=== PATIENT | female | born 1990 | race African-American/Black ===

== ENCOUNTER 2019-10-09 11:36 | Emergency (ER) | payer OTHER, SELFPAY ==
[2019-10-09 11:52] VITALS: BP 115/62; PULSE 89; RESP 16; TEMP 36.7; O2SAT 99
--- NOTE | 2019-10-09 11:54 | ED.GENADULT ---
HPI - General Adult General Chief complaint: Urogenital-Female Stated complaint: Poss UTI,headeache Time Seen by Provider: 10/09/19 11:56 Source: patient and RN notes reviewed Mode of arrival: ambulatory Limitations: no limitations History of Present Illness HPI narrative: This is a 29 years old female presented office for evaluation of possible UTI. Symptoms began two days ago with urinary urgency and frequency and back pain.Symptoms reminiscent her previous UTI. 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 She is sexually active with one partner. Denies concern for STD. She admits that she does not drink enough water, she drinks mostly soda. Related Data Home Medications Medication Instructions Recorded Confirmed medroxyprogesterone [Depo-Provera] 150 mg IM [id number] 07/15/19 07/15/19 Allergies Allergy/AdvReac Type Severity Reaction Status Date / Time sulfamethoxazole Allergy Unknown Unknown Verified 07/15/19 09:40 Review of Systems Review of Systems: Narrative: CONSTITUTIONAL: Denies fever ENT: Denies rhinorrhea, congestion, sore throat CARDIOVASCULAR: Denies chest pain RESPIRATORY: Denies dyspnea, wheezing, cough GASTROINTESTINAL: Denies abdominal pain, nausea, vomiting, diarrhea. GENITOURINARY: Denies abnormal discharge or lesions SKIN: Denies rash MUSCULOSKELETAL: Reports lower back aches NEUROLOGIC: Denies lightheaded/dizziness PMFSH Past Medical History Medical History (Updated 10/09/19 @ 12:06 by ELIDIA Estrada) Recurrent UTI Social History Social History (Updated 07/15/19 @ 09:49 by ELIDIA Grady) Smoking status: Never smoker Alcohol intake: never Substance use: never Comments At time of signature, I agree with nursing past medical, surgical, social and family history. There is no relevant family history pertinent to the presenting complaint. Exam Narrative: Exam Narrative: GENERAL: This is a well-nourished, well-developed patient, in no apparent distress. CARDIOVASCULAR: Regular rate and rhythm without murmurs, gallops, or rubs. RESPIRATORY: Clear to auscultation. Breath sounds equal bilaterally. No wheezes, rales, or rhonchi. GASTROINTESTINAL: Abdomen soft, non-tender, nondistended. Bowel sounds are active. No hepato-splenomegaly, or palpable masses. No guarding.No CVA tenderness SKIN: warm, intact with no suspicious lesions or rash, good texture and turgor. NEURO: awake, alert, and oriented to person, place and time. There were no obvious focal neurologic abnormalities. Steady gait [place] Coma Scale Eye Opening: Spontaneous 4 [place] Coma Scale Motor: Obeys Commands 6 [place] Coma Scale Verbal: Oriented 5 Course Vital Signs Vital signs: Vital Signs Temperature 98.0 F 10/09/19 11:52 Pulse Rate 89 10/09/19 11:52 Respiratory Rate 16 10/09/19 11:52 Blood Pressure 115/62 10/09/19 11:52 Pulse Oximetry 99 10/09/19 11:52 Temperature 98.0 F 10/09/19 11:52 Pulse Rate 89 10/09/19 11:52 Respiratory Rate 16 10/09/19 11:52 Blood Pressure 115/62 10/09/19 11:52 Pulse Oximetry 99 10/09/19 11:52 Medical Decision Making MDM Narrative Medical decision making narrative: Discharge instructions reviewed with patient, as well as provided in writing per nursing staff. The instructions also include specific and strict return/GO TO THE ER as well as f/u information. All questions have been answered, and the patient deny any further questions with discharge and discharge plan. Differential Diagnosis Differential Diagnosis: Cystitis, Nephrolithiasis, bacterial vaginosis, Nephritis, candidiasis, vaginitis, pyelonephritis Medical Records Medical records reviewed: Yes I reviewed the patient's medical records. Vital Signs Vital Signs: Vital Signs Temperature 98.0 F 10/09/19 11:52 Pulse Rate 89 10/09/19 11:52 Respiratory Rate 16
== END 2019-10-09 12:11 | disposition home or self-care (01) ==
PROVIDERS: Emergency Provider Nurse Practitioner
DX: N39.0 Urinary tract infection, site not specified (principal)
CPT/HCPCS: 81003; 87086; 87088; 99213; G0463

== ENCOUNTER 2019-11-14 09:36 | Emergency (ER) | payer OTHER, SELFPAY ==
[2019-11-14 09:42] VITALS: BP 118/71; PULSE 90; RESP 16; TEMP 36.2; O2SAT 100
--- NOTE | 2019-11-14 10:37 | ED.URI ---
HPI - URI/Sore Throat General Chief Complaint: Upper Respiratory Infection Stated Complaint: Cough, bodyaches Time Seen by Provider: 11/14/19 09:45 Source: patient Mode of arrival: ambulatory Limitations: no limitations History of Present Illness HPI Narrative: Patient presents with chief complaint of body aches, headache, sore throat for 3 days. Patient states she did not receive a flu shot this year. 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 Patient denies fever. Patient denies nausea, vomiting, diarrhea. Patient reports mild cough that is nonproductive. Patient states she has been able to eat and drink appropriately. Patient denies any other symptoms or concerns. Patient states that she is taking TheraFlu for her symptoms. Related Data Home Medications Medication Instructions Recorded Confirmed medroxyprogesterone [Depo-Provera] 150 mg IM [id number] 07/15/19 07/15/19 Allergies Allergy/AdvReac Type Severity Reaction Status Date / Time sulfamethoxazole Allergy Unknown Unknown Verified 11/14/19 09:55 Review of Systems Review of Systems: Narrative: CONSTITUTIONAL: Denies fever, chills, or sweats. EYES: Denies visual changes, redness, or discharge. ENT: Reports congestion, sore throat, denies rhinorrhea or otalgia. CARDIOVASCULAR: Denies chest pain, palpitations, or edema. RESPIRATORY: Reports cough denies dyspnea. GASTROINTESTINAL: Denies abdominal pain, nausea, vomiting, or diarrhea. GENITOURINARY: Denies dysuria or hematuria. SKIN: Denies rash or itching. MUSCULOSKELETAL: Denies back pain, joint pain, or myalgia. NEUROLOGIC: Denies headache, numbness, dizziness, or weakness. PSYCHIATRIC: Denies anxiety or depression. [facility] Past Medical History Medical History (Updated 11/14/19 @ 10:42 by Lizz Sunshine PA-C) Recurrent UTI Social History Social History (Updated 07/15/19 @ 09:49 by ELIDIA Grady) Smoking status: Never smoker Alcohol intake: never Substance use: never Gender identity (if verbalized by the patient): Female Exam Narrative: Exam Narrative: GENERAL: Well-appearing, well-nourished, and in no acute distress. HEAD: Normocephalic, atraumatic. EYES: PERRLA and EOMI. ENT: Nares clear, no rhinorrhea or epistaxis. Mucous membranes moist mildly edematous. Oropharynx with mild tonsillar hypertrophy without exudate or other lesions. Bilateral TMs pearly patel nonbulging NECK: Supple. No adenopathy or masses. CHEST: Clear to auscultation. No respiratory distress. No wheezes rales or rhonchi HEART: Regular rate and rhythm. No murmur heard. Normal peripheral pulses. EXTREMITIES: Normal range of motion. No edema. SKIN: Warm, dry, no rash. NEURO: No focal deficits. Alert and oriented x3. PSYCH: Normal mood and affect. Course Vital Signs Vital signs: Vital Signs Temperature 97.2 F L 11/14/19 09:42 Pulse Rate 90 11/14/19 09:42 Respiratory Rate 16 11/14/19 09:42 Blood Pressure 118/71 11/14/19 09:42 Pulse Oximetry 100 11/14/19 09:42 Temperature 97.2 F L 11/14/19 09:42 Pulse Rate 90 11/14/19 09:42 Respiratory Rate 16 11/14/19 09:42 Blood Pressure 118/71 11/14/19 09:42 Pulse Oximetry 100 11/14/19 09:42 MDM - URI/Sore Throat MDM Narrative Medical decision making narrative: Patient strep and influenza were negative. Patient diagnosed with viral illness. Patient instructed to take [id number] medications such as TheraFlu that she has been taking drink plenty of fluids to stay hydrated and rest. Patient will receive work note for the next few days. Patient instructed to follow-up with her primary care provider if symptoms persist. Patient directed to return to emergency department if she has any worsening or emergent symptoms. Patient verbalized understanding, plan patient denies any other needs or concerns at this time. Differential Diagnosis Differential
[2019-11-14 11:06] VITALS: BP 122/80; PULSE 80; RESP 20; TEMP 37.2; O2SAT 99
[2019-11-14 11:08] VITALS: BP 122/80; PULSE 80; RESP 20; TEMP 37.2; O2SAT 99
== END 2019-11-14 11:10 | disposition home or self-care (01) ==
PROVIDERS: Emergency Provider Emergency Medicine
DX: B34.9 Viral infection, unspecified (principal); Z87.440 Personal history of urinary (tract) infections
CPT/HCPCS: 87081; 87804; 87880; 99283

== ENCOUNTER 2019-11-25 09:42 | Emergency (ER) | payer OTHER, SELFPAY ==
[2019-11-25 09:52] VITALS: BP 109/54; PULSE 79; RESP 16; TEMP 37.1; O2SAT 99
--- NOTE | 2019-11-25 10:45 | ED.GENADULT ---
HPI - General Adult General Chief complaint: Nausea/Vomiting/Diarrhea Stated complaint: vomiting/diarrhea/abd pain History of Present Illness HPI narrative: Patient is a 29-year-old -[place] female who presents to the urgent care via POV for evaluation of vomiting that began this morning. Additionally, she reports one episode of vomiting undigested food. She also reports moderate nausea. She believes her symptoms are caused by bad food . She states she believes the lettuce and tomato she ate last night was spoiled . Denies taking OTC meds for symptoms. Symptoms worsen while sitting up and improved with sleeping. Denies recent travel. Pertinent negatives: fever, chills, sweats, change in appetite, poor p.o. intake, recent weight loss, abdominal pain, abdominal cramping, extremity paresthesias, urinary sxs, back/flank pain, belching, bloating, heartburn, hematemesis, bloody stools, rectal bleeding, mental confusion, dry mouth, skin color changes, shortness of breath, chest pain, and heart palpitations/murmurs. She is requesting documentation for work absence. Related Data Home Medications Medication Instructions Recorded Confirmed medroxyprogesterone [Depo-Provera] 150 mg IM [id number] 07/15/19 11/25/19 Allergies Allergy/AdvReac Type Severity Reaction Status Date / Time sulfamethoxazole Allergy Unknown Swelling Verified 11/25/19 10:17 Review of Systems Review of Systems: Narrative: All other systems reviewed and are negative PMFSH Past Medical History Medical History Recurrent UTI Social History Social History Smoking status: Never smoker Alcohol intake: never Substance use: never Gender identity (if verbalized by the patient): Female Comments I have reviewed and agree with the patient's past medical, surgical, social, and family hx as documented by the RN. There is no relevant family history pertinent to the presenting complaint. Exam Narrative: Exam Narrative: GENERAL: Well-appearing, well-nourished, and in no acute distress. HEAD: Normocephalic, atraumatic. NECK: Supple. No lymphadenopathy or nuchal rigidity. CHEST: Lung sounds are clear to auscultation in bilateral lung harmon. No respiratory distress. HEART: Regular rate and rhythm. No murmur, gallop, or rub heard. ABDOMEN: Soft, non-tender, non-distended, normal active bowel sounds in all quadrants. No guarding. No rebound tenderness. No pulsatile or palpable abdominal mass(es). No CVATGU: Bladder non-distended, non-tender EXTREMITIES: Normal range of motion. No edema. SKIN: Warm, dry, no rash. No skin color changes. Excellent turgor. NEURO: No focal deficits. Alert and oriented x3. Special observations: Patient smiling and laughing. Course Vital Signs Vital signs: Vital Signs Temperature 98.8 F 11/25/19 09:52 Pulse Rate 79 11/25/19 09:52 Respiratory Rate 16 11/25/19 09:52 Blood Pressure 109/54 L 11/25/19 09:52 Pulse Oximetry 99 11/25/19 09:52 Temperature 98.8 F 11/25/19 09:52 Pulse Rate 79 11/25/19 09:52 Respiratory Rate 16 11/25/19 09:52 Blood Pressure 109/54 L 11/25/19 09:52 Pulse Oximetry 99 11/25/19 09:52 Medical Decision Making MDM Narrative Medical decision making narrative: Bowel obstruction, perforation of GI tract, Acute mesenteric ischemia, chronic mesenteric ischemia, IBD, viral gastroenteritis, spontaneous bacterial peritonitis, food borne illness, Ketoacidosis, malignancy, IBS, constipation, diverticulosis, lactose intolerance Medical Records Medical records reviewed: Yes I reviewed the patient's medical records. Vital Signs Vital Signs: Vital Signs Temperature 98.8 F 11/25/19 09:52 Pulse Rate 79 11/25/19 09:52 Respiratory Rate 16 11/25/19 09:52 Blood Pressure 109/54 L 11/25/19 09:52 Pulse Oximetry 99 11/25/19 09:52 Temperature 98.8 F 11/25/19
== END 2019-11-25 10:55 | disposition home or self-care (01) ==
PROVIDERS: Emergency Provider Nurse Practitioner Family
DX: R11.2 Nausea with vomiting, unspecified (principal); D57.3 Sickle-cell trait; Z87.440 Personal history of urinary (tract) infections
CPT/HCPCS: 99213; G0463

== ENCOUNTER 2019-12-18 05:53 | Emergency (ER) | payer OTHER, SELFPAY ==
[2019-12-18 06:02] VITALS: BP 123/71; PULSE 93; RESP 16; TEMP 37.1; O2SAT 100
--- NOTE | 2019-12-18 06:07 | ED.ABDPAIN ---
HPI - Abdominal Pain General Chief Complaint: Abdominal Pain Stated Complaint: abd and low back pain Time Seen by Provider: 12/18/19 06:04 History of Present Illness HPI narrative: Lower abdominal Pain for the past three days. Constant. No exacerbating or alleviating factors. Associated with urinary frequency, dysuria, and vaginal dyscharge. Additionally she c/o some bilateral low back pain. She was started on flagyl by her PCP for suspected BV. No exam or testing done. She vomited 2 weeks ago. She has been seen for this or similar symptoms in the past and treated for a UTI. Most recently last month. Urinae culture came back negative. Related Data Home Medications Medication Instructions Recorded Confirmed medroxyprogesterone [Depo-Provera] 150 mg IM [id number] 07/15/19 11/25/19 Allergies Allergy/AdvReac Type Severity Reaction Status Date / Time sulfamethoxazole Allergy Unknown Swelling Verified 12/18/19 06:08 Review of Systems Review of Systems: All systems reviewed & are unremarkable except as noted in HPI and below Constitutional: Constitutional: Denies fever(s) ENT: Denies sore throat Cardiovascular: Cardiovascular: Denies chest pain Respiratory: Respiratory: Denies cough and Denies dyspnea Gastrointestinal: Gastrointestinal: Reports abdominal pain, Denies constipation, Denies diarrhea and Reports nausea Genitourinary: Genitourinary: Denies hematuria, Reports nocturia and Reports dysuria Musculoskeletal: Musculoskeletal: Reports back pain Neurologic: Denies dizziness and Denies weakness [facility] Past Medical History Medical History Recurrent UTI Social History Social History (Updated 12/18/19 @ 07:02 by Pavel Soriano MD) Social History: Sexually active in monogamous relationship. Smoking status: Never smoker Alcohol intake: never Substance use: never Gender identity (if verbalized by the patient): Female Exam Const: General: healthy appearing, no acute distress and alert Orientation/consciousness: patient oriented x3 HENMT: Head: normal to inspection Neck: Neck: normal visual inspection and no lymphadenopathy Chest: Chest palpation & inspection: no tenderness Resp: Effort & Inspection: normal respiratory effort Auscultation: clear to auscultation bilaterally, no rales, no rhonchi and no wheezes Cardio: Jugular venous distension: no JVD Rate: regular rate Rhythm: regular rhythm Heart sounds: no murmurs GI: Inspection: non-distended GI Palp: Yes Soft to palpation and Yes Tenderness to palpation present (GI) (suprapubic) : External Female Exam: normal external appearance Speculum Exam - Vagina: abnormal vaginal discharge white and frothy and No vaginal bleeding Bimanual exam- vagina & uterus: no cervical motion tenderness Other: erythema of vaginal and cervix Skin: General skin exam: normal color Neuro: General: patient oriented x3 and moves all extremities Speech: normal speech Extrem: General: no edema Psych: Appearance: well kempt Affect: normal affect Course Course Emergency Course: Placed on telemetry to monitor for QT prolongation prior to giving medications. Vital Signs Vital signs: Vital Signs Temperature 37.1 C 12/18/19 06:02 Pulse Rate 93 12/18/19 06:02 Respiratory Rate 16 12/18/19 06:02 Blood Pressure 123/71 12/18/19 06:02 Pulse Oximetry 100 12/18/19 06:02 Temperature 37.1 C 12/18/19 06:02 Pulse Rate 89 12/18/19 08:56 Respiratory Rate 18 12/18/19 08:56 Blood Pressure 112/61 12/18/19 08:56 Pulse Oximetry 100 12/18/19 08:56 MDM - Abdominal Pain MDM Narrative Medical decision making narrative: Pelvic exam is definitely concerning for cervicitis. No CMT, so PID is unlikely. Discharged is thick and white as may be seen with a yeast infection. This is made more likely by the multiple recent courses of antibiotics. I will treat empirically for cervicitis
[2019-12-18 06:34] LABS: Basophils Percent Auto 0.3 % (0.2-1.2); Eosinophils Absolute Auto 0.1 K/mm3 (0-0.3); Eosinophils Percent Auto 1.3 % (0-4.4); Hematocrit 38.8 % (37.0-47.0); Hemoglobin 12.4 g/dL (12.0-15.0); Immature Granulocyte Absolute 0.03 K/mm3 (0.00-0.031); Immature Granulocyte Percent A 0.3 % (0-0.5); Lymphocytes Absolute Auto 2.67 K/mm3 (0.9-3.2); Lymphocytes Percent Auto 29.5 % (18.3-44.2); Mean Corpuscular Hemoglobin 22.1 pg (26-34); Monocytes Absolute Auto 0.8 K/mm3 (0.1-0.6); Monocytes Percent Auto 8.8 % (2.6-8.5); Neutrophils Absolute Auto 5.4 K/mm3 (1.3-6.7); Neutrophils Percent Auto 59.8 % (45.5-73.1); Platelet Count Result 284 k/mm3 (150-375); Red Blood Count 5.62 M/mm3 (4.2-5.4); Red Cell Distribution Width 14.2 % (11.5-14.5); White Blood Count 9.1 K/mm3 (4.5-10.0)
[2019-12-18 06:39] LABS: Alanine Aminotransferase 13 U/L (4-35); Albumin Level 4.3 g/dL (3.5-5.1); Alkaline Phosphatase 76 U/L (38-126); Aspartate Amino Transferase 20 U/L (14-36); Bilirubin,Total 0.8 mg/dL (0.2-1.3); Blood Urea Nitrogen 10 mg/dL (7-17); Carbon Dioxide 24 mmol/L (22-30); Chloride 108 mmol/L (98-107); Estimated Glomerular Filt Rate > 60; Glucose 112 mg/dL (65-105); Lipase 70 U/L (23-300); Potassium 3.5 mmol/L (3.4-5.0); Sodium 139 mmol/L (137-145)
[2019-12-18 06:58] LABS: Add Urine Microscopic? YES; Appearance Urine Cloudy (Clear); Bacteria Urine 2+ /hpf; Bilirubin Urine Negative (Negative); Blood Urine 2+ (Negative); Color Urine Yellow (Yellow); Glucose Urine UA Negative (Negative); Ketones Urine Negative (Negative); Leukocyte Esterase Ur 1+ LEU/UL (Negative); Mucus Urine Rare /lpf; Nitrate Urine Negative (Negative); Protein Urine 1+ mg/dL (Negative); Specific Grav Ur 1.029 (1.001-1.035); Squamous Epithelial Cell Urine Many /hpf (Few)
--- NOTE | 2019-12-18 07:24 | PC.NURSE ---
At bedside while EDP did pelvic exam. Pt tolerated well.
[2019-12-18] MEDS: AZITHROMYCIN 250 MG TABLET 1000 MG PO (07:33)
[2019-12-18] MEDS: cefTRIAXone 250 MG VIAL IM (07:33)
[2019-12-18] MEDS: FLUCONAZOLE 150 MG TABLET PO (07:46)
[2019-12-18 07:50] VITALS: BP 112/76; PULSE 82; RESP 22; O2SAT 100
[2019-12-18 08:56] VITALS: BP 112/61; PULSE 89; RESP 18; O2SAT 100
== END 2019-12-18 08:57 | disposition home or self-care (01) ==
PROVIDERS: Emergency Provider Emergency Medicine
DX: N72 Inflammatory disease of cervix uteri (principal); Z87.440 Personal history of urinary (tract) infections
CPT/HCPCS: 36415; 80053; 81001; 81025; 83690; 85025; 87070; 87086; 87088; 87491; 87591; 87808; 96372; 99284; A9270; J0696

== ENCOUNTER 2020-05-25 10:58 | Emergency (ER) | payer BC, OTHER, SELFPAY ==
[2020-05-25 11:18] VITALS: BP 105/63; PULSE 78; RESP 16; TEMP 36.7; O2SAT 99
[2020-05-25] MEDS: AZITHROMYCIN 250 MG TABLET 1000 MG PO (11:55)
[2020-05-25] MEDS: cefTRIAXone 250 MG VIAL IM (11:56)
[2020-05-25] MEDS: LIDOCAINE HCL 1% LOCAL INJ 20 ML VIAL IM (11:56)
--- NOTE | 2020-05-25 12:00 | ED.FEMALEGU ---
HPI - Female Genitourinary General Chief complaint: Urogenital-Female Stated complaint: Not feeling Well Time Seen by Provider: 05/25/20 11:30 Source: patient and RN notes reviewed Mode of arrival: ambulatory Limitations: no limitations History of Present Illness HPI Narrative: Patient presents today with a 2-week history of urinary frequency and itching, vaginal discharge, nausea, pelvic pain. Symptoms have been worse for the last 5 days. Patient has 1 partner that is new over the past 4 to 5 months. She does have unprotected intercourse. She has been experiencing dyspareunia, but denies blood with intercourse. Denies hematuria. Uses Depo-Provera. Has not had a menstrual cycle in 4 to 5 years due to Depo-Provera use. MD elicited complaint: dysuria, vaginal discharge and pelvic pain Related Data Home Medications Medication Instructions Recorded Confirmed medroxyprogesterone [Depo-Provera] 1 mg IM [id number] 05/25/20 05/25/20 Allergies Allergy/AdvReac Type Severity Reaction Status Date / Time sulfamethoxazole Allergy Swelling Verified 05/25/20 11:23 [From ] trimethoprim [From ] Allergy Swelling Verified 05/25/20 11:23 Review of Systems Review of Systems: Narrative: CONSTITUTIONAL: Denies body aches, fever, chills, or sweats. EYES: Denies visual changes, redness, or discharge. ENT: Denies rhinorrhea, congestion, sore throat, or otalgia. CARDIOVASCULAR: Denies chest pain, palpitations, or edema. RESPIRATORY: Denies cough or dyspnea. GASTROINTESTINAL: Denies abdominal pain, nausea, vomiting, or diarrhea. GENITOURINARY: + Dysuria, frequency, vaginal itching and discharge, dyspareunia SKIN: Denies rash, itching, or wounds. MUSCULOSKELETAL: Denies back pain, joint pain, or myalgia. NEUROLOGIC: Denies headache, numbness, tingling, or weakness. PSYCH: Denies depression or anxiety. PMFSH Social History Social History Gender identity (if verbalized by the patient): Female Comments At time of signature, I have reviewed and agree with nursing past medical, surgical, social and family history unless otherwise noted. Please see nursing chart for further information. There is no relevant family history pertinent to the presenting complaint Exam Narrative: Exam Narrative: GENERAL: Well-appearing, well-nourished, and in no acute distress. HEAD: Normocephalic, atraumatic. EYES: EOMI. No redness or drainage. Conjunctivae normal. ENT: Mucous membranes pink and moist. NECK: Normal AROM. CHEST: No respiratory distress. Clear to auscultation. HEART: Regular rate and rhythm. No murmur appreciated. Normal peripheral pulses. ABDOMEN: Soft, nondistended, normal active bowel sounds. :Copious green/yellow purulent vaginal discharge with pooling. Cervix appears normal. No CMT. +Pelvic tenderness. MUSCULOSKELETAL: No bony tenderness. EXTREMITIES: Normal range of motion. No edema. SKIN: Warm, dry, no rash. Capillary refill normal. Normal skin turgor. NEURO: No focal deficits. Alert and oriented x3. Gait steady. PSYCH: Normal affect. No signs of depression or anxiety. Course Vital Signs Vital signs: Vital Signs Temperature 98.0 F 05/25/20 11:18 Pulse Rate 78 05/25/20 11:18 Respiratory Rate 16 05/25/20 11:18 Blood Pressure 105/63 05/25/20 11:18 Pulse Oximetry 99 05/25/20 11:18 Temperature 98.0 F 05/25/20 11:18 Pulse Rate 78 05/25/20 11:18 Respiratory Rate 16 05/25/20 11:18 Blood Pressure 105/63 05/25/20 11:18 Pulse Oximetry 99 05/25/20 11:18 Reviewed MDM - Female Genitourinary Differential Diagnosis Differential diagnosis: Likely urinary tract infection, bacterial vaginosis, trichomoniasis, cervicitis, vaginitis and cystitis Lab Data Attestation: I reviewed the patient's lab results. Labs: Urine Glucose Negative Reference Range: Negative Urine Bilirubin Negative Reference Range: Negative Urine Ketone
--- NOTE | 2020-05-25 12:12 | PC.NURSE ---
Provider did not want urine culture
== END 2020-05-25 12:19 | disposition home or self-care (01) ==
PROVIDERS: Emergency Provider Nurse Practitioner
DX: R35.0 Frequency of micturition (principal)
CPT/HCPCS: 81003; 87491; 87591; 87661; 96372; 99204; A9270; G0463; J0696

== ENCOUNTER 2020-06-21 12:19 | Emergency (ER) | payer BC, OTHER, SELFPAY ==
[2020-06-21 12:38] VITALS: BP 111/54; PULSE 80; RESP 16; TEMP 36.8; O2SAT 100
--- NOTE | 2020-06-21 13:07 | ED.GENADULT ---
HPI - General Adult General Chief complaint: Ear Stated complaint: Ear Pain,Back Pain Time Seen by Provider: 06/21/20 12:37 Source: patient and RN notes reviewed Mode of arrival: ambulatory Limitations: no limitations History of Present Illness HPI narrative: Patient presents today with a 4-day history of left ear pain as well as bilateral low back pain and urinary frequency. Denies any other upper respiratory symptoms to include cough, congestion, sore throat, runny nose, fever. She denies any additional urinary symptoms to include dysuria, hematuria, urgency. Denies nausea, vomiting, diarrhea. She has tried no [id number] interventions prior to arrival. Patient was seen here last month for vaginal discharge and urinary symptoms, tested for gonorrhea, chlamydia, and trichomonas as well as treated for all of these. All of these test came back negative. She did not follow-up with an [employer] for any further evaluation of the symptoms. MD complaint: Ear pain, back pain Related Data Home Medications Medication Instructions Recorded Confirmed medroxyprogesterone [Depo-Provera 150 mg IM [id number] 06/21/20 06/21/20 Contraceptive] Allergies Allergy/AdvReac Type Severity Reaction Status Date / Time sulfamethoxazole Allergy Swelling Verified 06/21/20 12:43 [From Bactrim] of Lip/Tongue/Throat trimethoprim [From Bactrim] Allergy Swelling Verified 06/21/20 12:43 of Lip/Tongue/Throat Review of Systems Review of Systems: Narrative: CONSTITUTIONAL: Denies body aches, fever, chills, or sweats. EYES: Denies visual changes, redness, or discharge. ENT: Denies rhinorrhea, congestion, sore throat. + Ear pain CARDIOVASCULAR: Denies chest pain, palpitations, or edema. RESPIRATORY: Denies cough or dyspnea. GASTROINTESTINAL: Denies abdominal pain, nausea, vomiting, or diarrhea. GENITOURINARY: Denies dysuria or hematuria.+ Urinary frequency SKIN: Denies rash, itching, or wounds. MUSCULOSKELETAL: Denies joint pain, or myalgia. + Low back pain NEUROLOGIC: Denies headache, numbness, tingling, or weakness. PSYCH: Denies depression or anxiety. PMFSH Comments At time of signature, I have reviewed and agree with nursing past medical, surgical, social and family history unless otherwise noted. Please see nursing chart for further information. There is no relevant family history pertinent to the presenting complaint Exam Narrative: Exam Narrative: GENERAL: Well-appearing, well-nourished, and in no acute distress. HEAD: Normocephalic, atraumatic. EYES: EOMI. No redness or drainage. Conjunctivae normal. ENT: Mucous membranes pink and moist. Nares clear. No rhinorrhea. TMs normal bilaterally. Left external ear with tragal tenderness. No movement tenderness bilaterally. Left ear canal is mildly erythematous and tender with placement of the ear speculum. No edema of the canal noted. Throat normal. Uvula midline. NECK: Normal AROM. Supple. No lymphadenopathy. CHEST: No respiratory distress. Clear to auscultation. HEART: Regular rate and rhythm. No murmur appreciated. Normal peripheral pulses. ABDOMEN: Soft, nontender, nondistended, normal active bowel sounds. MUSCULOSKELETAL: No bony tenderness of the spine. Bilateral lower lumbar paraspinal muscle tenderness. No SI joint tenderness. No thoracic spinal tenderness or paraspinal muscle tenderness. EXTREMITIES: Normal range of motion. No edema. Large, sharp acrylic fingernails. SKIN: Warm, dry, no rash. Capillary refill normal. Normal skin turgor. NEURO: No focal deficits. Alert and oriented x3. Gait steady. PSYCH: Normal affect. No signs of depression or anxiety. Course Vital Signs Vital signs: Vital Signs Temperature 98.2 F 06/21/20 12:38 Pulse Rate 80 06/21/20 12:38 Respiratory Rate 16 06/21/20 12:38 Blood Pressure 111/54 L 06/21/20 12:38 Pulse Oximetry 100 06/21/20 12:38 Temperature 98.2 F 06/21/20 12:38 Pulse Rate 80 06/21/20 12
== END 2020-06-21 13:27 | disposition home or self-care (01) ==
PROVIDERS: Emergency Provider Nurse Practitioner
DX: H60.502 Unspecified acute noninfective otitis externa, left ear (principal); S39.012A Strain of muscle, fascia and tendon of lower back, initial encounter; X58.XXXA Exposure to other specified factors, initial encounter; D57.3 Sickle-cell trait
CPT/HCPCS: 81003; 87086; 99203; G0463

== ENCOUNTER 2020-11-05 20:09 | Emergency (ER) | payer BC, MEDICAID, SELFPAY ==
[2020-11-05 20:11] VITALS: BP 118/62; PULSE 99; RESP 20; TEMP 36.1; O2SAT 99
--- NOTE | 2020-11-05 20:28 | ED.GENADULT ---
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 Stated complaint: vaginal blisters Time Seen by Provider: 11/05/20 20:17 Source: patient Mode of arrival: ambulatory Limitations: no limitations History of Present Illness HPI narrative: Patient is a 30-year-old female who presents to emergency department for evaluation of what she feels were sores around the introitus patient was with 1 partner notes that she has been having irritation of the vagina for the last 2 weeks patient has not seen her steward/stewardess smoke room for this denies similar occurrence patient otherwise presents in no distress and denies other illness or complaints Related Data Home Medications Medication Instructions Recorded Confirmed medroxyprogesterone [Depo-Provera] 1 mg IM [id number] 05/25/20 05/25/20 Allergies Allergy/AdvReac Type Severity Reaction Status Date / Time sulfamethoxazole Allergy Swelling Verified 11/05/20 20:17 [From ] trimethoprim [From ] Allergy Swelling Verified 11/05/20 20:17 Review of Systems Review of Systems: All systems reviewed & are unremarkable except as noted in HPI and below PMFSH Social History Social History Gender identity (if verbalized by the patient): Female Exam Narrative: Exam Narrative: GENERAL: Well-appearing, well-nourished, and in no acute distress. HEAD: Normocephalic, atraumatic. EYES: PERRLA and EOMI. ENT: Nares clear, no rhinorrhea or epistaxis. Mucous membranes moist. ABDOMEN: Soft, nontender, nondistended FEMALE GENITOURINARY: Normal exam no discharge no lesions EXTREMITIES: Normal range of motion. No edema. SKIN: Warm, dry, no rash. NEURO: No focal deficits. Alert and oriented x3. PSYCH: Normal mood and affect. Course Course Emergency Course: Patient evaluated the emergency department had pelvic cultures obtained will follow with gynecology no high risk changes no lesions sores noted on exam Vital Signs Vital signs: Vital Signs Temperature 97.0 F L 11/05/20 20:11 Pulse Rate 99 11/05/20 20:11 Respiratory Rate 20 11/05/20 20:11 Blood Pressure 118/62 11/05/20 20:11 Pulse Oximetry 99 11/05/20 20:11 Temperature 97.0 F L 11/05/20 20:11 Pulse Rate 99 11/05/20 20:11 Respiratory Rate 20 11/05/20 20:11 Blood Pressure 118/62 11/05/20 20:11 Pulse Oximetry 99 11/05/20 20:11 Medical Decision Making MDM Narrative Medical decision making narrative: Patient presented for vaginal lesions that are none seen on exam swabs were obtained for gonorrhea chlamydia trichomoniasis patient will follow with gynecology for further evaluate Vital Signs Vital Signs: Vital Signs Temperature 97.0 F L 11/05/20 20:11 Pulse Rate 99 11/05/20 20:11 Respiratory Rate 20 11/05/20 20:11 Blood Pressure 118/62 11/05/20 20:11 Pulse Oximetry 99 11/05/20 20:11 Temperature 97.0 F L 11/05/20 20:11 Pulse Rate 99 11/05/20 20:11 Respiratory Rate 20 11/05/20 20:11 Blood Pressure 118/62 11/05/20 20:11 Pulse Oximetry 99 11/05/20 20:11 Lab Data Labs: Lab Results 11/05/20 11/05/20 Range/Units 20:43 20:43 C.trachomatis RNA (TMA) Pending N.gonorrhoeae RNA (TMA) Pending Trichomonas Direct ID Negative (Negative) UCG Bedside Result Negative Reference Range: Negative Discharge Plan Discharge Clinical Impression: Vaginal pain Patient Disposition: Home, Self-Care Condition: Stable Instructions: Antibiotic Form, Pelvic Pain in Women (ED) Additional Instructions: Follow-up with your steward/stewardess smoke room for culture results in the next 3 days no sex until you have been seen by gynecology and cleared Follow up with your primary care doctor tommorrow. Go to ER for worsening pain, nausea/vomitting, fever/chills, vaginal discharge/bleeding, chest pain, shortness of breath, blood in stools or urine, etc. or any other con
== END 2020-11-05 21:10 | disposition home or self-care (01) ==
PROVIDERS: Emergency Medicine Emergency Medical Services; Emergency Provider Emergency Medicine
DX: N89.8 Other specified noninflammatory disorders of vagina (principal)
CPT/HCPCS: 81025; 87070; 87491; 87591; 87808; 99284

== ENCOUNTER 2020-12-05 12:42 | Emergency (ER) | payer MEDICAID, SELFPAY ==
--- NOTE | 2020-12-05 12:45 | ED.FEMALEGU ---
HPI - Female Genitourinary General Chief complaint: Urogenital-Female Stated complaint: STD Test Time Seen by Provider: 12/05/20 12:45 Source: patient and RN notes reviewed History of Present Illness HPI Narrative: Patient is a 30-year-old female who presents the urgent care with request for STD check. Patient states that she had oral and vaginal sexual intercourse 5 days ago and then started having symptoms of yellow odorous vaginal discharge, burning with urination, intermittent low back pain, and intermittent abdominal cramping. Patient states that she does have a lot of urinary frequency. Denies of any blood in the urine. Denies of any fever, chills, nausea, vomiting. Patient states she is also had some throat irritation . Patient denies of any fever, chills, nausea, vomiting. No other acute complaints. No acute distress noted. Patient aware of the plan of care. Patient Related Data Home Medications Medication Instructions Recorded Confirmed medroxyprogesterone [Depo-Provera] 150 mg IM [id number] 07/15/19 11/25/19 Allergies Allergy/AdvReac Type Severity Reaction Status Date / Time sulfamethoxazole Allergy Unknown Swelling Verified 12/18/19 06:08 Review of Systems Review of Systems: Narrative: CONSTITUTIONAL: Denies fever, chills, or sweats. EYES: Denies visual changes, redness, or discharge. ENT: Denies rhinorrhea, congestion, sore throat, or otalgia. CARDIOVASCULAR: Denies chest pain, palpitations, or edema. RESPIRATORY: Denies cough or dyspnea. GASTROINTESTINAL: Reports of mild lower abdominal cramping without nausea or vomiting GENITOURINARY: Reports of dysuria, frequency, yellow vaginal discharge and odor SKIN: Denies rash or itching. MUSCULOSKELETAL: Reports of mild low back pain NEUROLOGIC: Denies headache, numbness, or weakness. All other systems reviewed are negative, except as documented in HPI. [facility] Past Medical History Medical History (Updated 12/05/20 @ 13:19 by ELIDIA Mix) Recurrent UTI Social History Social History (Updated 12/18/19 @ 07:02 by Pavel Soriano MD) Social History: Sexually active in monogamous relationship. Smoking status: Never smoker Alcohol intake: never Substance use: never Gender identity (if verbalized by the patient): Female Comments At the time of my signature, I reviewed and agree with the nursing past medical, surgical, social, and family history. There is no relevant family history pertinent to the patient complaint. Exam Narrative: Exam Narrative: GENERAL: This is a well-nourished, well-developed patient, in no apparent distress. HEAD: normocephalic, atraumatic. EYES: PERRL. Sclera clear/white. Vision is grossly intact. EARS: External ears normal NOSE: External nose normal with no obvious nasal discharge, nares without redness, no rhinorrhea. THROAT: Mucous membranes moist, posterior pharynx clear. NECK: Neck supple, non-tender without lymphadenopathy GASTROINTESTINAL: Abdomen soft, mild suprapubic tenderness, nondistended. Bowel sounds are active. : Deferred vaginal exam SKIN: warm, intact with no suspicious lesions or rash, good texture and turgor. NEURO: awake, alert, and oriented to person, place and time. There were no obvious focal neurologic abnormalities. EXTREMITIES: No clubbing, cyanosis, or edema. BACK: Mild right CVA tenderness Course Vital Signs Vital signs: Vital Signs Temperature 98.1 F 12/05/20 13:00 Pulse Rate 97 12/05/20 13:00 Respiratory Rate 18 12/05/20 13:00 Blood Pressure 124/60 12/05/20 13:00 Pulse Oximetry 100 12/05/20 13:00 Temperature 98.1 F 12/05/20 13:00 Pulse Rate 97 12/05/20 13:00 Respiratory Rate 18 12/05/20 13:00 Blood Pressure 124/60 12/05/20 13:00 Pulse Oximetry 100 12/05/20 13:00 Reviewed MDM - Female Genitourinary MDM Narrative Medical decision making narrative: Reviewed lab results with the patient. She is aware that urine analysis was not
[2020-12-05 13:00] VITALS: BP 124/60; PULSE 97; RESP 18; TEMP 36.7; O2SAT 100
[2020-12-05] MEDS: cefTRIAXone 250 MG VIAL 500 MG IM (13:21)
== END 2020-12-05 13:42 | disposition home or self-care (01) ==
PROVIDERS: Emergency Provider Nurse Practitioner Family
DX: Z20.2 Contact with and (suspected) exposure to infections with a predominantly sexual mode of transmission (principal)
CPT/HCPCS: 81003; 87070; 87491; 87591; 87661; 96372; 99214; G0463; J0696

== ENCOUNTER 2021-01-08 15:34 | Emergency (ER) | payer OTHER, SELFPAY ==
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
[2021-01-08 15:51] VITALS: BP 106/69; PULSE 80; RESP 16; TEMP 36.4; O2SAT 100
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
== END 2021-01-08 17:08 | disposition home or self-care (01) ==
PROVIDERS: Emergency Provider Nurse Practitioner
DX: S39.012A Strain of muscle, fascia and tendon of lower back, initial encounter (principal); V87.7XXA Person injured in collision between other specified motor vehicles (traffic), initial encounter; R07.89 Other chest pain
CPT/HCPCS: 71101; 72100; 81003; 87086; 87088; 99213; G0463

== ENCOUNTER 2021-01-19 16:12 | Emergency (ER) | payer OTHER, SELFPAY ==
[2021-01-19 16:27] VITALS: BP 113/67; PULSE 82; RESP 18; TEMP 36.4; O2SAT 100
--- NOTE | 2021-01-19 16:31 | ED.FEMALEGU ---
HPI - Female Genitourinary General Chief complaint: Urogenital-Female Stated complaint: vaginal itching Time Seen by Provider: 01/19/21 16:31 Source: patient Mode of arrival: ambulatory Limitations: no limitations History of Present Illness HPI Narrative: Lurdes Colunga is a 30 yo female with no PMH here with complaints of vaginal itching after using a new body wash. Has had issues with vaginal itching for the past 2 days; no discharge Related Data Home Medications Medication Instructions Recorded Confirmed medroxyprogesterone [Depo-Provera] 1 mg IM [id number] 05/25/20 05/25/20 Allergies Allergy/AdvReac Type Severity Reaction Status Date / Time sulfamethoxazole Allergy Swelling Verified 11/05/20 20:17 [From ] trimethoprim [From ] Allergy Swelling Verified 11/05/20 20:17 Review of Systems Review of Systems: Narrative: CONSTITUTIONAL: Denies fever, chills, sweats. EYES: Denies visual changes, redness, discharge. ENT: Denies rhinorrhea, congestion, sore throat, otalgia. CARDIOVASCULAR: Denies chest pain, palpitations, edema. RESPIRATORY: Denies dyspnea, wheezing, cough GASTROINTESTINAL: Denies abdominal pain, nausea, vomiting, diarrhea. GENITOURINARY: Denies dysuria, hematuria, abnormal discharge SKIN: Denies rash or itching. NEUROLOGIC: Denies numbness, or focal weakness. PSYCHIATRIC: Denies anxiety or depression. Vaginal itching for 2 days after change in body wash PMFSH Past Medical History Medical History No acute medical problems Family History Family History (Updated 01/19/21 @ 16:37 by Azeb Lam CNP) Father Diabetes mellitus Social History Social History (Updated 01/19/21 @ 16:37 by Azeb Lam CNP) Smoking status: Never smoker Alcohol intake: current Gender identity (if verbalized by the patient): Female Comments At time of signature, I agree with nursing past medical, surgical, social and family history. There is no relevant family history pertinent to the presenting complaint. Exam Narrative: Exam Narrative: GENERAL: This is a well-nourished, well-developed patient, in mild distress. HEAD: normocephalic, atraumatic. EYES: Sclera clear/white. Vision is grossly intact. EARS: External ears normal,. Hearing grossly intact. NOSE: External nose normal no rhinorrhea. THROAT: Mucous membranes moist, NECK: Neck supple, CARDIOVASCULAR: Regular rate and rhythm without murmurs, gallops, or rubs. RESPIRATORY: Clear to auscultation. Breath sounds equal bilaterally. No wheezes, rales, or rhonchi. GASTROINTESTINAL: Abdomen soft, non-tender, SKIN: warm, intact with no suspicious lesions or rash, good texture and turgor. NEURO: awake, alert, and oriented to person, place and time. There were no obvious focal neurologic abnormalities. Steady gait EXTREMITIES: Normal range of motion. BACK: Nontender without deformity Course Course Emergency Course: [facility] with complaints of vaginal itching x2 days; also has a history of UTI UA done-+1 leukocytes with 1+1 blood She started on 5 days Keflex, Diflucan 1 pill today with another to follow-up in 3 days Vital Signs Vital signs: Vital Signs Temperature 97.6 F 01/19/21 16:27 Pulse Rate 82 01/19/21 16:27 Respiratory Rate 18 01/19/21 16:27 Blood Pressure 113/67 01/19/21 16:27 Pulse Oximetry 100 01/19/21 16:27 Temperature 97.6 F 01/19/21 16:27 Pulse Rate 82 01/19/21 16:27 Respiratory Rate 18 01/19/21 16:27 Blood Pressure 113/67 01/19/21 16:27 Pulse Oximetry 100 01/19/21 16:27 MDM - Female Genitourinary Differential Diagnosis Differential diagnosis: Likely urinary tract infection, cervicitis, vaginitis, cystitis and other Lab Data Labs: Urine Glucose Negative Reference Range: Negative Urine Bilirubin Negative
--- NOTE | 2021-01-19 16:31 | PC.NURSE ---
in br to obtain ua spec.
== END 2021-01-19 16:54 | disposition home or self-care (01) ==
PROVIDERS: Emergency Provider Nurse Practitioner
DX: B37.3 Candidiasis of vulva and vagina (principal); N30.90 Cystitis, unspecified without hematuria; D57.3 Sickle-cell trait
CPT/HCPCS: 81003; 87086; 99213; G0463

== ENCOUNTER 2021-03-08 08:31 | Emergency (ER) | payer OTHER, SELFPAY ==
[2021-03-08 08:39] VITALS: BP 108/63; PULSE 76; RESP 16; TEMP 36.5; O2SAT 100
--- NOTE | 2021-03-08 08:53 | ED.FEMALEGU ---
HPI - Female Genitourinary General Chief complaint: Urogenital-Female Stated complaint: Stomach pain,lower back pain Time Seen by Provider: 03/08/21 08:53 Source: patient and RN notes reviewed Mode of arrival: ambulatory Limitations: no limitations History of Present Illness HPI Narrative: 30-year-old female presents to the [facility] with complaints of lower abdominal, suprapubic and low back pain. States has been going on and getting worse over the last week. States that she has had a new partner and is concerned about STDs. States that she has had foul odor and vaginal discharge that looks like cottage cheese. Patient states that she has had similar symptoms in the past when she was diagnosed with an STD. Denies fevers. No chest pain. MD elicited complaint: UTI and vaginal discharge Related Data Home Medications Medication Instructions Recorded Confirmed medroxyprogesterone [Depo-Provera] 1 mg IM [id number] 05/25/20 05/25/20 Allergies Allergy/AdvReac Type Severity Reaction Status Date / Time sulfamethoxazole Allergy Swelling Verified 11/05/20 20:17 [From ] trimethoprim [From Mayra] Allergy Swelling Verified 11/05/20 20:17 Review of Systems Review of Systems: All systems reviewed & are unremarkable except as noted in HPI and below Constitutional: Constitutional: Reports no additional constitutional complaints, Denies chills and Denies fatigue Eyes: Eyes: Reports no additional eye complaints ENT: Reports system reviewed and no additional complaints, except as documented Cardiovascular: Cardiovascular: Reports no additional cardiovascular complaints and Denies chest pain Respiratory: Respiratory: Reports no additional respiratory complaints, Denies cough, Denies dyspnea and Denies wheezing Gastrointestinal: Gastrointestinal: Reports as per HPI, Reports abdominal pain, Denies nausea and Denies vomiting Genitourinary: Genitourinary: Reports as per HPI, Denies genital lesions, Reports dysuria, Denies pelvic pain, Denies flank pain and Reports vaginal discharge Musculoskeletal: Musculoskeletal: Reports no additional musculoskeletal complaints, Denies back pain, Denies myalgias, Denies arthralgias, Denies joint swelling and Denies muscle cramps Integumentary/Breasts: Skin/Breast: Reports system reviewed and no additional complaints, except as docu, Denies erythema and Denies rash Neurologic: Reports system reviewed and no additional complaints, except as documented Psychiatric: Psychiatric: Reports no additional psychiatric complaints Allergic/Immunologic: Allergic/Immunologic: Reports no additional allergic/immunologic complaints PMFSH Past Medical History Medical History No acute medical problems Family History Family History Father Diabetes mellitus Social History Social History Smoking status: Never smoker Alcohol intake: current Gender identity (if verbalized by the patient): Female Comments At the time of my signature, I reviewed and agree with the nursing past medical, surgical, social, and family history. There is no relevant family history pertinent to the patient complaint. Exam Const: General: healthy appearing, no acute distress and alert Nutritional Appearance: well nourished Orientation/consciousness: patient oriented x3 Limitations: no limitations HENMT: Head: normal to inspection Eyes: Pupils: Equal, round and reactive pupils present Neck: Neck: normal visual inspection, no lymphadenopathy and no meningeal signs Chest: Chest palpation & inspection: normal inspection of the chest Resp: Effort & Inspection: normal respiratory effort and no use of accessory muscles Auscultation: clear to auscultation bilaterally, no crackles, no rales, no rhonchi and no wheezes Cardio: Rate: regular rate GI: GI Palp: Yes
[2021-03-08] MEDS: LIDOCAINE HCL 1% LOCAL INJ 20 ML VIAL 2.1 ML IM (09:22)
[2021-03-08] MEDS: cefTRIAXone 1 GM VIAL 0.5 GM IM (09:23)
== END 2021-03-08 09:47 | disposition home or self-care (01) ==
PROVIDERS: Emergency Provider Nurse Practitioner
DX: N76.0 Acute vaginitis (principal); Z20.2 Contact with and (suspected) exposure to infections with a predominantly sexual mode of transmission
CPT/HCPCS: 81003; 81025; 87070; 87086; 87491; 87591; 87661; 96372; 99214; G0463; J0696

== ENCOUNTER 2021-10-10 18:25 | Emergency (ER) | payer OTHER, SELFPAY ==
--- NOTE | 2021-10-10 18:31 | ED.FEMALEGU ---
HPI - Female Genitourinary General Source: patient and RN notes reviewed History of Present Illness HPI Narrative: This is a 31-year-old female who presented to urgent care with complaints of vaginal pain. According to patient she has had vaginal pain for approximately 2 weeks she does note that she has a yellowish-white discharge and that she was previously prescribed Diflucan x1 and Flagyl for bacterial vaginitis. Patient did note that the cream that she received for bacterial vaginosis irritate her. The patient denies SOB, CP, palpitation, extremity numbness, lightheadedness, dizziness, constipation, diarrhea, chills, dysuria, frequency urgency vaginal bleeding or fever. Related Data Home Medications Medication Instructions Recorded Confirmed medroxyprogesterone [Depo-Provera] 1 mg IM [id number] 05/25/20 05/25/20 Allergies Allergy/AdvReac Type Severity Reaction Status Date / Time sulfamethoxazole Allergy Swelling Verified 11/05/20 20:17 [From ] trimethoprim [From ] Allergy Swelling Verified 11/05/20 20:17 Review of Systems Review of Systems: A 14 organ system Review of Systems was performed and pertinent positives included in the HPI, otherwise remaining ROS is negative. [facility] Past Medical History Medical History No acute medical problems Family History Family History Father Diabetes mellitus Social History Social History Smoking status: Never smoker Alcohol intake: current Gender identity (if verbalized by the patient): Female Exam Narrative: GENERAL: This is a well-nourished, well-developed patient, in no apparent distress. HEAD: normocephalic, atraumatic. EYES: PERRL. Sclera clear/white. Vision is grossly intact. EARS: External ears normal, auditory canals clear and without drainage, TMs normal without perforation. Hearing grossly intact. NOSE: External nose normal with no obvious nasal discharge, nares without redness, no rhinorrhea. THROAT: Mucous membranes moist, posterior pharynx clear. NECK: Neck supple, non-tender without lymphadenopathy, masses or thyromegaly. CARDIOVASCULAR: Regular rate and rhythm without murmurs, gallops, or rubs. RESPIRATORY: Clear to auscultation. Breath sounds equal bilaterally. No wheezes, rales, or rhonchi. GASTROINTESTINAL: Abdomen soft, non-tender, nondistended. Bowel sounds are active. No hepato-splenomegaly, or palpable masses. No guarding. SKIN: warm, intact with no suspicious lesions or rash, good texture and turgor. NEURO: awake, alert, and oriented to person, place and time. There were no obvious focal neurologic abnormalities. Steady gait EXTREMITIES: Normal range of motion. No edema. No calf tenderness. Negative Homans sign bilaterally. BACK: Nontender without deformity or crepitance. No flank tenderness. Course Course Level of Care: Express Care Visit Vital Signs Vital signs: Vital Signs Temperature 98.5 F 10/10/21 18:32 Pulse Rate 89 10/10/21 18:32 Respiratory Rate 16 10/10/21 18:32 Blood Pressure 104/62 10/10/21 18:32 Pulse Oximetry 100 10/10/21 18:32 Temperature 98.5 F 10/10/21 18:32 Pulse Rate 89 10/10/21 18:32 Respiratory Rate 16 10/10/21 18:32 Blood Pressure 104/62 10/10/21 18:32 Pulse Oximetry 100 10/10/21 18:32 MDM - Female Genitourinary Lab Data Labs: Urine Glucose Negative Reference Range: Negative Urine Ketone Negative Reference Range: Negative Urine Specific [place] 1.030 Reference Range:1.001-1.035 Urine Blood 2+ Referen
[2021-10-10 18:32] VITALS: BP 104/62; PULSE 89; RESP 16; TEMP 36.9; O2SAT 100
== END 2021-10-10 19:03 | disposition home or self-care (01) ==
PROVIDERS: Emergency Provider Nurse Practitioner
DX: N76.0 Acute vaginitis (principal); B37.3 Candidiasis of vulva and vagina
CPT/HCPCS: 81003; 87086; 99213; G0463

== ENCOUNTER 2022-01-09 21:49 | Emergency (ER) | payer OTHER, SELFPAY ==
[2022-01-09 22:17] VITALS: BP 118/68; PULSE 86; RESP 16; TEMP 37.4; O2SAT 98
[2022-01-10 02:07] LABS: Appearance Urine Clear (Clear); Bilirubin Urine 1+ (Negative); Blood Urine 1+ (Negative); Color Urine Yellow (Yellow); Glucose Urine UA Negative (Negative); Ketones Urine Trace mg/dL (Negative); Leukocyte Esterase Ur Trace LEU/UL (Negative); Nitrate Urine Negative (Negative); Protein Urine Negative (Negative); Specific Grav Ur 1.025 (1.001-1.035)
--- NOTE | 2022-01-10 02:09 | ED.FEMALEGU ---
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 States irritation is increased with vaginal intercourse. Patient states that her vaginal discharge is white and clumpy, but is also occasionally thin and watery. Denies fishy odor. She has had a history of yeast infections, and states this feels similar. Denies dysuria, hematuria, fevers, chills. She uses Depo for control. Related Data Home Medications Medication Instructions Recorded Confirmed medroxyprogesterone [Depo-Provera] 1 mg IM [id number] 05/25/20 05/25/20 Allergies Allergy/AdvReac Type Severity Reaction Status Date / Time sulfamethoxazole Allergy Swelling Verified 01/10/22 01:19 [From ] trimethoprim [From ] Allergy Swelling Verified 01/10/22 01:19 Review of Systems Review of Systems: Gen: Denies fevers or chills Eyes: Denies eye pain or visual change ENT: Denies congestion Respiratory: Denies shortness of breath or cough CV: Denies chest pain or palpitations GI: Denies abdominal pain nausea, emesis or diarrhea : Reports vaginal discharge. Denies burning, urgency, frequency or hematuria Musculoskeletal: Denies back pain or muscle pain Neuro: Denies numbness, tingling, weakness or focal weakness Skin: Denies rash Except as documented, all other systems reviewed and negative All systems reviewed & are unremarkable except as noted in HPI and below PMFSH Past Medical History Medical History No acute medical problems Family History Family History Father Diabetes mellitus Social History Social History Smoking status: Never smoker Alcohol intake: current Gender identity (if verbalized by the patient): Female Exam Narrative: APPEARANCE: Well appearing, no pain in distress, well-nourished. Head: normocephalic and atraumatic. EYES: PERRLA/EOMI, conjunctivae clear NOSE: No nasal drainage EARS: External ear normal in appearance THROAT: Oropharynx is clear. Mucous membranes are moist. NECK: Supple. No adenopathy, no masses. RESPIRATORY: Airway patent, respirations nonlabored. Clear to auscultation bilaterally, no rales, rhonchi, wheezing. CARDIOVASCULAR: Regular rate and rhythm without murmurs, rubs, or gallops. : Exam performed with press breaker Roseline. Small amount of thick white vaginal discharge noted in vaginal vault. Whiff test negative. No cervical motion tenderness or adnexal tenderness. No foreign body visualized. ABDOMINAL: Normoactive bowel sounds. Soft, nontender, nondistended. No rebound tenderness or guarding. MUSCULOSKELETAL: Extremities are warm and well-perfused. Moves all extremities well. No edema. NEURO: Normal speech. No focal neurologic deficits. SKIN: Skin is warm and dry. No rashes. PSYCHIATRIC: Normal affect/mood. Course Vital Signs Vital signs: Vital Signs Temperature 99.3 F 01/09/22 22:17 Pulse Rate 86 01/09/22 22:17 Respiratory Rate 16 01/09/22 22:17 Blood Pressure 118/68 01/09/22 22:17 Pulse Oximetry 98 01/09/22 22:17 Temperature 99.3 F 01/09/22 22:17 Pulse Rate 86 01/09/22 22:17 Respiratory Rate 16 01/09/22 22:17 Blood Pressure 118/68 01/09/22 22:17 Pulse Oximetry 98 01/09/22 22:17 MDM - Female Genitourinary MDM Narrative Medical decision making narrative: 31-year-old female here with vaginal irritation for 2 days. Vital signs stable, pelvic exam with small amount of thick white vaginal discharge. Samples obtained, sent to lab. Will treat prophylactically for yeast infection with 150 mg Difl
[2022-01-10] MEDS: FLUCONAZOLE 150 MG TABLET PO (02:14)
[2022-01-10 02:16] LABS: Add Urine Microscopic? YES; Bacteria Urine Trace /hpf; Mucus Urine Rare /lpf; Squamous Epithelial Cell Urine Moderate /hpf (Few); WBC Urine 0-3 /hpf
== END 2022-01-10 03:00 | disposition home or self-care (01) ==
LOC: ANHED 01-10 02:00
PROVIDERS: Physician Assistant; Emergency Provider Emergency Medicine
DX: N76.0 Acute vaginitis (principal)
CPT/HCPCS: 81001; 81025; 87070; 87491; 87591; 87808; 99283; A9270

== ENCOUNTER 2022-01-16 08:48 | Emergency (ER) | payer OTHER, SELFPAY ==
[2022-01-16 08:57] VITALS: BP 114/65; PULSE 96; RESP 16; TEMP 37.2; O2SAT 99
--- NOTE | 2022-01-16 09:02 | ED.FEMALEGU ---
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 Colunga is a 31-year-old female patient presenting to the clinic today with complaints of pelvic pain/burning. She reports that she is having pelvic pain/burning ever since last week. Was seen in the ER on January 10 and had STD testing completed. The only thing that came back positive forearm the testing was yeast in her genital swab. She was given a prescription for some Diflucan and has taken this without relief. She states that they did not do bacterial vaginosis testing while she was in the ER. I reviewed her labs and her GC chlamydia testing, urine, , and trichomonas testing were negative. Her genital culture shows moderate amount of yeast. She reports that she had intercourse yesterday and was painful/burning. She denies any urinary symptoms. She denies any fever or chills. She denies any vaginal discharge currently. She denies any vaginal bleeding. Related Data Home Medications Medication Instructions Recorded Confirmed medroxyprogesterone [Depo-Provera] 150 mg IM [id number] 07/15/19 01/16/22 Allergies Allergy/AdvReac Type Severity Reaction Status Date / Time sulfamethoxazole Allergy Swelling Verified 01/16/22 08:51 [From ] trimethoprim [From ] Allergy Swelling Verified 01/16/22 08:51 Review of Systems Review of Systems: Pertinent positives per HPI. Patient denies any fever, chills, rash, headache, visual changes, dizziness, cough, runny nose, sore throat, shortness of breath, chest pain, palpitations, nausea, vomiting, diarrhea, constipation, abdominal pain, or any urinary issues. [facility] Past Medical History Medical History No acute medical problems No acute medical problems Recurrent UTI Family History Family History Father Diabetes mellitus Social History Social History Social History: Sexually active in monogamous relationship. Smoking status: Never smoker Alcohol intake: current Substance use: never Gender identity (if verbalized by the patient): Female Comments At the time of my signature, I reviewed and agree with the nursing past medical, surgical, social, and family history. There is no relevant family history pertinent to the patient complaint. Exam Narrative: General: Well-developed, well nourished, in no apparent distress Head: Normocephalic, atraumatic. Cardio: Regular rate and rhythm, s1 and s2 normal, no murmur appreciated. Resp: Clear to auscultation bilaterally, no rhonchi, rales, wheezing or rubs. Abdomen: Soft, pliable, bowel sounds present in all quadrants, non-tender to palpation, no organomegaly, no CVAT tenderness. : Pelvic exam performed with (Amy BUTLER) at bedside. Verbal consent obtained from patient. Normal external female genitalia without lesions or masses, Urinary meatus: patent without discharge or scarring, Vagina: No lesions, masses, or scarring, mildly red/inflamed vaginal tissue, white discharge in pelvic vault, Cervix: pink without mass, lesions, or scarring, tenderness with CMT. Adnexa: without palpable mass or tenderness. Genital swab obtained and sent to lab. Course Course Emergency Course: Portions of this record may have been created with voice recognition software. Level of Care: Express Care Visit Vital Signs Vital signs: Vital Signs Temperature 37.2 C 01/16/22 08:57 Pulse Rate 96 01/16/22 08:57 Respiratory Rate 16 01/16/22 08:57 Blood Pressure 114/65 01/16/22 08:57 Pulse Oximetry 99 01/16/22 08:57 Temperature 37.2 C 01/16/22 08:57 Pulse Rate 96 01/16/22 08:5
== END 2022-01-16 09:35 | disposition home or self-care (01) ==
PROVIDERS: Emergency Provider Nurse Practitioner Family
DX: R10.2 Pelvic and perineal pain (principal); N94.10 Unspecified dyspareunia; D57.3 Sickle-cell trait
CPT/HCPCS: 81003; 81025; 87070; 99213; G0463

== ENCOUNTER 2022-03-30 09:19 | Emergency (ER) | payer OTHER, SELFPAY ==
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
[2022-03-30 09:21] VITALS: BP 124/64; PULSE 90; RESP 16; TEMP 36.6; O2SAT 100
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
[2022-03-30] MEDS: ACETAMINOPHEN 325 MG TABLET 650 MG PO (09:37)
[2022-03-30] MEDS: IBUPROFEN 600 MG TABLET PO (09:38)
--- NOTE | 2022-04-03 19:20 | PC.NURSE ---
LATE ENTRY This note is being entered to document information to the patient's record. The following information was omitted on [04/03/22], by [CARRIE Galeana]. Splint applied to the R. hand.
== END 2022-03-30 12:16 | disposition home or self-care (01) ==
PROVIDERS: Emergency Provider General Practice
DX: S62.524A Nondisplaced fracture of distal phalanx of right thumb, initial encounter for closed fracture (principal); Y04.2XXA Assault by strike against or bumped into by another person, initial encounter
CPT/HCPCS: 29125; 73090; 73130; 99284; A9270

== ENCOUNTER 2022-04-21 08:18 | Emergency (ER) | payer OTHER, SELFPAY ==
[2022-04-21 08:27] VITALS: BP 113/66; PULSE 87; RESP 18; TEMP 36.4; O2SAT 100
--- NOTE | 2022-04-21 08:29 | ED.FEMALEGU ---
HPI - Female Genitourinary General Chief complaint: Urogenital-Female Stated complaint: possible yeast infection Time Seen by Provider: 04/21/22 08:29 Source: patient Mode of arrival: ambulatory Limitations: no limitations History of Present Illness HPI Narrative: Ms. Colunga is a 31-year-old female patient presenting to the clinic today with complaints of a possible yeast infection. She reports she noticed itching and burning to her vaginal area 1 to 2 days ago. She reports she gets these often. She has contacted her pharmacy for refill on her Diflucan however there were no refills left. States that she wash her close in the wrong detergent and often gets yeast infections if this happens. She denies any vaginal discharge, fever, chills, urinary symptoms, flank pain, or abdominal pain Related Data Home Medications Medication Instructions Recorded Confirmed medroxyprogesterone 150 mg/mL 150 mg IM [id number] 04/21/22 04/21/22 intramuscular syringe Allergies Allergy/AdvReac Type Severity Reaction Status Date / Time sulfamethoxazole Allergy Swelling Verified 04/21/22 08:34 [From ] trimethoprim [From ] Allergy Swelling Verified 04/21/22 08:34 Review of Systems Review of Systems: Pertinent positives per HPI. Patient denies any fever, chills, rash, headache, visual changes, dizziness, cough, runny nose, sore throat, shortness of breath, chest pain, palpitations, nausea, vomiting, diarrhea, constipation, abdominal pain, or any urinary issues. [facility] Past Medical History Medical History No acute medical problems No acute medical problems Recurrent UTI Family History Family History Father Diabetes mellitus Social History Social History Social History: Sexually active in monogamous relationship. Smoking status: Never smoker Alcohol intake: current Substance use: never Gender identity (if verbalized by the patient): Female Comments At the time of my signature, I reviewed and agree with the nursing past medical, surgical, social, and family history. There is no relevant family history pertinent to the patient complaint. Exam Narrative: General: Well-developed, well nourished, in no apparent distress Head: Normocephalic, atraumatic. Cardio: Regular rate and rhythm, s1 and s2 normal, no murmur appreciated. Resp: Clear to auscultation bilaterally, no rhonchi, rales, wheezing or rubs. Abdomen: Soft, pliable, bowel sounds present in all quadrants, non-tender to palpation, no CVAT tenderness. : Pelvic exam deferred Course Course Emergency Course: Portions of this record may have been created with voice recognition software. Level of Care: Express Care Visit Vital Signs Vital signs: Vital Signs Temperature 36.4 C L 04/21/22 08:27 Pulse Rate 87 04/21/22 08:27 Respiratory Rate 18 04/21/22 08:27 Blood Pressure 113/66 04/21/22 08:27 Pulse Oximetry 100 04/21/22 08:27 Oxygen Delivery Room Air 04/21/22 08:27 Temperature 36.4 C L 04/21/22 08:27 Pulse Rate 87 04/21/22 08:27 Respiratory Rate 18 04/21/22 08:27 Blood Pressure 113/66 04/21/22 08:27 Pulse Oximetry 100 04/21/22 08:27 Oxygen Delivery Room Air 04/21/22 08:27 Vital signs reviewed MDM - Female Genitourinary MDM Narrative Medical decision making narrative: At the time of visit patient is resting comfortably on exam table. Due to the frequent history of yeast infections and just complaining of burning and itching I we will go ahead and treat patient for vaginal yeast infection. Diflucan prescription sent to the pharmacy and supportive measures were discussed with the patient she voiced understanding of discharge instructions. Differential Diagnosis Differential diagnosis: Likely urinary tract infection,
== END 2022-04-21 08:45 | disposition home or self-care (01) ==
PROVIDERS: Emergency Provider Nurse Practitioner Family
DX: B37.3 Candidiasis of vulva and vagina (principal); D57.3 Sickle-cell trait
CPT/HCPCS: 99213; G0463

== ENCOUNTER 2022-04-25 15:20 | Outpatient (CLI) | payer OTHER, SELFPAY ==
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
== END 2022-04-25 15:21 | disposition home or self-care (01) ==
PROVIDERS: Visit Provider Plastic Surgery
DX: S62.524A Nondisplaced fracture of distal phalanx of right thumb, initial encounter for closed fracture (principal); X58.XXXA Exposure to other specified factors, initial encounter
CPT/HCPCS: 73140

== ENCOUNTER 2023-05-31 11:19 | Emergency (ER) | payer OTHER, SELFPAY ==
[2023-05-31 11:25] VITALS: BP 118/56; PULSE 103; RESP 12; TEMP 36.8; O2SAT 100
--- NOTE | 2023-05-31 11:39 | ED.FEMALEGU ---
HPI - Female Genitourinary General Chief complaint: Urogenital-Female Stated complaint: body aches,vaginal issue Time Seen by Provider: 05/31/23 11:40 Source: patient, RN notes reviewed and old records reviewed Mode of arrival: ambulatory Limitations: no limitations History of Present Illness HPI Narrative: 33 year old female presents to express care with complaints of body aches that started yesterday for which patient took a warm bath, denies any other symptoms of possible URI or any fevers, Patient reports also that she has had a foul vaginal odor and she has yellowish white vaginal discharge, She states that she took 2 weeks ago Fluconazole for her discharge and her symptoms have worsened. Patient reports that she has had unprotected sexual intercourse. Patient reports no urinary symptoms MD elicited complaint: vaginal discharge and possible STD Pertinent past history: other (vaginal yeast infection and BV) Onset (ago): week(s) (1-2 weeks) Vaginal discharge: white and yellow Related Data Home Medications Medication Instructions Recorded Confirmed medroxyprogesterone 150 mg/mL 150 mg IM [id number] 04/21/22 05/31/23 intramuscular syringe Allergies Allergy/AdvReac Type Severity Reaction Status Date / Time sulfamethoxazole Allergy Swelling Verified 05/31/23 11:28 [From ] trimethoprim [From ] Allergy Swelling Verified 05/31/23 11:28 Review of Systems Review of Systems: CONSTITUTIONAL: Denies fever, chills, or sweats. CARDIOVASCULAR: Denies chest pain, palpitations, or edema. RESPIRATORY: Denies cough or dyspnea. GASTROINTESTINAL: Denies abdominal pain, nausea, vomiting, or diarrhea. GENITOURINARY: Reports no dysuria, frequency, urgency. Denies flank pain or hematuria.reports foul vaginal discharge with color white and yellow SKIN: Denies rash or itching. MUSCULOSKELETAL: Denies back pain or myalgia. Denies CVA tenderness NEUROLOGIC: Denies headache All systems reviewed & are unremarkable except as noted in HPI and below PMFSH Past Medical History Medical History No acute medical problems No acute medical problems Recurrent UTI Family History Family History Father Diabetes mellitus Social History Social History (Reviewed 04/21/22 @ 09:00 by AARON Bowen Social History: Sexually active in monogamous relationship. Smoking status: Never smoker Alcohol intake: current Substance use: never Gender identity (if verbalized by the patient): Female Comments At time of signature, agree with nursing past medical, surgical, social and family history. There is no relevant family history pertinent to the presenting complaint Exam Narrative: GENERAL: Well-appearing, well-nourished, and in no acute distress. HEAD: Normocephalic, atraumatic. NECK: Supple.no lymphadenopathy CHEST: Clear to auscultation. No respiratory distress.SAO2 100% on room air HEART: Regular rate and rhythm. No murmur heard. Normal peripheral pulses. ABDOMEN: Soft, nontender, nondistended, normal active bowel sounds. No CVA tenderness, no abdominal pain, vaginal cultures obtained chaperoned by Margaret Lu RN EXTREMITIES: Normal range of motion. No edema. SKIN: Warm, dry, no rash. NEURO: No focal deficits. Alert and oriented x3. : General: Yes bladder normal to palpation External Female Exam: normal external appearance Speculum Exam - Vagina: abnormal vaginal discharge white and yellow Speculum Exam - Cervix: normal appearance of the cervix Other: Cultures obtained and sent to lab for analysis Course Course Emergency Course: Patient is aware of diagnosis, understands and agrees to treatment plan.? Anticipatory guidance given.? Patient agrees to follow-up as directed and is aware of reasons to seek care at the emergency department. Portions of this record may have been
[2023-05-31] MEDS: cefTRIAXone 500 MG, LIDOCAINE HCL 1% LOCAL INJ 1 ML IM (12:42)
[2023-05-31 16:05] LABS: Trichomonas Vag PCR NOT DETECTED (NOT DETECTE)
[2023-05-31 16:30] LABS: Chlamydia trachomatis NOT DETECTED (NOT DETECTE); Neisseria gonorrhoeae PCR NOT DETECTED (NOT DETECTE)
== END 2023-05-31 12:57 | disposition home or self-care (01) ==
PROVIDERS: Emergency Provider Registered Nurse
DX: N89.8 Other specified noninflammatory disorders of vagina (principal)
CPT/HCPCS: 87070; 87491; 87591; 87661; 96372; 99214; G0463; J0696

== ENCOUNTER 2023-08-01 12:35 | Emergency (ER) | payer OTHER, SELFPAY ==
[2023-08-01 12:46] VITALS: BP 114/58; PULSE 80; RESP 16; TEMP 36.6; O2SAT 100
--- NOTE | 2023-08-01 12:46 | ED.FEMALEGU ---
HPI - Female Genitourinary General Chief complaint: Urogenital-Female Stated complaint: vaginal burning Time Seen by Provider: 08/01/23 12:46 Source: patient Mode of arrival: ambulatory Limitations: no limitations History of Present Illness HPI Narrative: Lurdes is a 33-year-old female patient presenting to the clinic today with complaints of vaginal burning since Friday. She was having low back pain, green vaginal discharge, and pelvic pain Friday and she reports she was seen at [facility] and they tested/ treated her for STI/BV/PID-she was given doxycycline, Rocephin, and Flagyl. States that all of her testing came back negative but while continuing the medication she is developing worsening of vaginal burning and irritation. States that she does have a history of genital herpes. Did take her Valtrex and states that this did not improve her symptoms. Went to the ER yesterday as she was still having vaginal burning and she was given a prescription for clindamycin vaginal cream. When she looks at her vaginal area she does not see any lesions or sores. States that she used the clindamycin vaginal cream and that made the symptoms worse. She reports being in a monogamous relationship. Denies any fever or chills. Denies any urinary symptoms. Related Data Home Medications Medication Instructions Recorded Confirmed medroxyprogesterone 150 mg/mL 150 mg IM [id number] 04/21/22 05/31/23 intramuscular syringe Allergies Allergy/AdvReac Type Severity Reaction Status Date / Time sulfamethoxazole Allergy Swelling Verified 08/01/23 12:44 [From ] trimethoprim [From ] Allergy Swelling Verified 08/01/23 12:44 Review of Systems Review of Systems: Pertinent positives per HPI. Patient denies any fever, chills, rash, headache, visual changes, dizziness, cough, runny nose, sore throat, shortness of breath, chest pain, palpitations, nausea, vomiting, diarrhea, constipation, abdominal pain, or any urinary issues. [facility] Past Medical History Medical History No acute medical problems No acute medical problems Recurrent UTI Family History Family History Father Diabetes mellitus Social History Social History (Reviewed 08/01/23 @ 12:46 by AARON Bowen Social History: Sexually active in monogamous relationship. Smoking status: Never smoker Alcohol intake: current Substance use: never Gender identity (if verbalized by the patient): Female Comments At the time of my signature, I reviewed and agree with the nursing past medical, surgical, social, and family history. There is no relevant family history pertinent to the patient complaint. Exam Narrative: General: Well-developed, well nourished, in no apparent distress Head: Normocephalic, atraumatic. Cardio: Regular rate and rhythm, s1 and s2 normal, no murmur appreciated. Resp: Clear to auscultation bilaterally, no rhonchi, rales, wheezing or rubs. Abdomen: Soft, pliable, bowel sounds present in all quadrants, non-tender to palpation, no CVAT tenderness. : External pelvic exam performed with (Shasha BUTLER) at bedside. Verbal consent obtained from patient. Normal external female genitalia without lesions or masses, Urinary meatus: patent without discharge, Vagina: No lesions or masses-white discharge from the vagina likely from the clindamycin cream, no foul odor at her vaginal area is excoriated Course Course Emergency Course: Portions of this record may have been created with voice recognition software. Level of Care: Express Care Visit Vital Signs Vital signs: Vital signs reviewed MDM - Female Genitourinary MDM Narrative Medical decision making narrative: At the time of visit patient is resting comfortably on the exam table. External pelvic exam was performed and patient has excoriation to the outer
== END 2023-08-01 13:14 | disposition home or self-care (01) ==
PROVIDERS: Emergency Provider Nurse Practitioner Family
DX: R10.2 Pelvic and perineal pain (principal)
CPT/HCPCS: 99213; G0463

== ENCOUNTER 2023-08-27 12:08 | Emergency (ER) | payer OTHER, SELFPAY ==
[2023-08-27 12:16] VITALS: BP 106/62; PULSE 89; RESP 16; TEMP 37.1; O2SAT 99
[2023-08-27 12:17] VITALS: BP 106/62; PULSE 89; RESP 16; TEMP 37.1; O2SAT 99
--- NOTE | 2023-08-27 12:24 | ED.FEMALEGU ---
HPI - Female Genitourinary General Chief complaint: Urogenital-Female Stated complaint: vaginal issue Time Seen by Provider: 08/27/23 12:09 Source: patient Mode of arrival: ambulatory Limitations: no limitations History of Present Illness HPI Narrative: Lurdes is a 33-year-old female patient presenting to the clinic today with complaints of vaginal discharge that just started yesterday after intercourse with her significant other. She reports she is having some white vaginal discharge and vaginal irritation. Denies any concern for any sexually transmitted infections. Believes that she has BV. Related Data Home Medications Medication Instructions Recorded Confirmed medroxyprogesterone 150 mg/mL 150 mg IM [id number] 04/21/22 08/27/23 intramuscular syringe Allergies Allergy/AdvReac Type Severity Reaction Status Date / Time sulfamethoxazole Allergy Swelling Verified 08/27/23 12:14 [From ] trimethoprim [From ] Allergy Swelling Verified 08/27/23 12:14 Review of Systems Review of Systems: Pertinent positives per HPI. Patient denies any fever, chills, rash, headache, visual changes, dizziness, cough, runny nose, sore throat, shortness of breath, chest pain, palpitations, nausea, vomiting, diarrhea, constipation, abdominal pain, or any urinary issues. PMFSH Past Medical History Medical History No acute medical problems No acute medical problems Recurrent UTI Family History Family History Father Diabetes mellitus Social History Social History Social History: Sexually active in monogamous relationship. Smoking status: Never smoker Alcohol intake: current Substance use: never Gender identity (if verbalized by the patient): Female Comments At the time of my signature, I reviewed and agree with the nursing past medical, surgical, social, and family history. There is no relevant family history pertinent to the patient complaint. Exam Narrative: General: Well-developed, well nourished, in no apparent distress Head: Normocephalic, atraumatic. Cardio: Regular rate and rhythm, s1 and s2 normal, no murmur appreciated. Resp: Clear to auscultation bilaterally, no rhonchi, rales, wheezing or rubs. Abdomen: Soft, pliable, bowel sounds present in all quadrants, non-tender to palpation, no CVAT tenderness. : Pelvic exam performed with (Margaret BUTLER) at bedside. Verbal consent obtained from patient. Normal external female genitalia without lesions or masses, Urinary meatus: patent without discharge, Vagina: No lesions, masses, white sticky discharge noted in the pelvic vault, Cervix: pink without mass, lesions, discharge, or tenderness. Adnexa: without palpable mass or tenderness. Course Course Emergency Course: Portions of this record may have been created with voice recognition software. Level of Care: Express Care Visit Vital Signs Vital signs: Vital Signs Temperature 37.1 C 08/27/23 12:16 Pulse Rate 89 08/27/23 12:16 Respiratory Rate 16 08/27/23 12:16 Blood Pressure 106/62 08/27/23 12:16 Pulse Oximetry 99 08/27/23 12:16 Oxygen Delivery Room Air 08/27/23 12:16 Temperature 37.1 C 08/27/23 12:17 Pulse Rate 89 08/27/23 12:17 Respiratory Rate 16 08/27/23 12:17 Blood Pressure 106/62 08/27/23 12:17 Pulse Oximetry 99 08/27/23 12:17 Oxygen Delivery Room Air 08/27/23 12:17 Vital signs reviewed MDM - Female Genitourinary MDM Narrative Medical decision making narrative: At the time of visit patient is resting comfortably on the exam table. Patient appears to be nontoxic. Patient is requesting treatment for BV. Reviewed patient's old genital culture results as patient is here often for vaginal complaints and they will were all negative for bacterial vag
== END 2023-08-27 12:38 | disposition home or self-care (01) ==
PROVIDERS: Emergency Provider Nurse Practitioner Family
DX: N89.8 Other specified noninflammatory disorders of vagina (principal)
CPT/HCPCS: 87070; 99214; G0463

== ENCOUNTER 2025-08-03 00:26 | Emergency (ER) | payer OTHER, SELFPAY ==
[2025-08-03] VITALS (11 sets, daily range): BP systolic 89–133; BP diastolic 41–72; PULSE 65–88; RESP 14–20; TEMP 36.9; O2SAT 97–100
--- NOTE | ~2025-08-03 | CT_ITS ---
EXAMINATION: CT abdomen pelvis wo con DATE: 08/03/2025 01:55 INDICATION: Left flank pain. Lower abdomen pain. TECHNIQUE: Computed tomography (CT) of the abdomen and pelvis was performed without intravenous contrast. The dose-length product was 521.96 mGy-cm. Automated exposure control and iterative reconstruction technique were employed. COMPARISON: None. FINDINGS: Lung bases unremarkable. Heart size normal. No significant pleural or pericardial effusion. The liver, spleen, pancreas, adrenal glands and kidneys are unremarkable. Gallbladder is present. Nonobstructive bowel gas pattern. Small fat-containing umbilical hernia. No free air or free fluid. No abnormal pelvic masses or fluid collections. No significant vascular abnormality. No lymphadenopathy.0 no renal or ureteral stones. No hydronephrosis. No acute osseous abnormality. IMPRESSION: 1. No acute abdominal abnormality. Reviewed, dictated and finalized at location O. STIC DIRECTOR
[2025-08-03 00:59] LABS: BEDSIDEPREGUCG Negative (Negative)
[2025-08-03] MEDS: ONDANSETRON INJ 4 MG/2 ML VIAL IV PUSH (01:00)
--- NOTE | 2025-08-03 01:00 | ED_ITS ---
HPI - Abdominal Pain General Chief Complaint: Abdominal Pain <Osiris Shetty APRN - Last Filed: 08/03/25 04:44> Stated Complaint: left sided pain <Osiris Shetty APRN - Last Filed: 08/03/25 04:44> Time Seen by Provider: 08/03/25 00:36 <Osiris Shetty APRN - Last Filed: 08/03/25 04:44> History of Present Illness HPI narrative: Patient is a 35-year-old female who presents to the ER with left flank pain and bilateral lower abdominal pain. She reports this pain has been present for approximately 1 week. Patient reports the pain is intermittent. She endorses nausea but denies vomiting or recent fevers. Patient endorses urinary urgency. She reports she had a bowel movement this morning and it was normal for her. Patient endorses a history of sickle cell trait and urinary tract infections. <Osiris Shetty APRN - Last Filed: 08/03/25 04:44> Related Data Home Medications: Home Medications ?Medication ?Instructions ?Recorded ?Confirmed ?Last Taken ?Type medroxyprogesterone 150 mg/mL 150 mg IM [id number] 04/2108/27/23 Unknown History intramuscular syringe <Osiris Shetty APRN - Last Filed: 08/03/25 04:44> Allergies/Adverse Reactions: Allergies Allergy/AdvReac Type Severity Reaction Status Date / Time sulfamethoxazole (From Allergy Swelling Verified 08/03/25 00:27 ) trimethoprim (From ) Allergy Swelling Verified 08/03/25 00:27 <Osiris Shetty APRN - Last Filed: 08/03/25 04:44> Review of Systems 2 Review of Systems: All systems reviewed & are unremarkable except as noted in HPI and below <Osiris Shetty APRN - Last Filed: 08/03/25 04:44> PMFSH Past Medical History Medical History: Medical History No acute medical problems Recurrent UTI No acute medical problems <Osiris Shetty APRN - Last Filed: 08/03/25 04:44> Family History Family History: Family History Father Diabetes mellitus <Osiris Shetty APRN - Last Filed: 08/03/25 04:44> Social History Social History: Social History Social History: Sexually active in monogamous relationship. Smoking status: Never smoker Alcohol intake: current Substance use: never Gender identity (if verbalized by the patient): Female <Osiris Shetty APRN - Last Filed: 08/03/25 04:44> Exam 2 Narrative: GENERAL: Well appearing, well-nourished, non-toxic, in no acute distress. HEAD: Normocephalic, atraumatic. NECK: Supple. No adenopathy, no masses. RESPIRATORY: Airway patent, respirations nonlabored. Clear to auscultation bilaterally, no rales, rhonchi, wheezing. CARDIOVASCULAR: Regular rate and rhythm without murmurs, rubs, or gallops. Peripheral pulses 2+ and equal bilaterally. + left-sided CVA 10 ABDOMINAL: Soft, nontender, nondistended, no hepatosplenomegaly. Normoactive BS. MUSCULOSKELETAL: Moves all extremities. Strength/ROM intact without gross deformities. SKIN: Warm, dry, normal color. No rashes. NEURO: A&O X3. Speech clear. Cranial nerves II-XII intact. No ataxic movements. PSYCHIATRIC: Appropriate mood and affect. Normal interaction. <Osiris Shetty APRN - Last Filed: 08/03/25 04:44> Course Course Emergency Course: [facility] - Patient care signed out by previous provider pending CT scan results. Laboratory studies reviewed. No signs of urinary infection or any leukocytosis. No fever. No tachycardia. Pain improved with morphine and Toradol. CT scan still pending at time of shift change. Signed out to morning physician Dr. Velasco pending radiology read and final disposition based on results. <Brayan Guerra MD - Last Filed: 08/03/25 19:20> [facility] - Patient care signed out by previous provider pending CT scan results. Laboratory studies reviewed. No signs of urinary infection or any leukocytosis. No fever. No tachycardia. Pain improved with morphine and Toradol. CT scan still pending at time of shift change. Signed out to morning physician Dr. Velasco pending radiology read and final disposition based on results. Rod -35-year-old female signed out to me pending CT abdomen pelvis. Patient was re-interviewed @ bedside. She says that last week she had a sharp pain in her right lower back. It was worse with movement. At pain then resolved but she developed pain in her left lower back that is also sharp and worse with movement. 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 She has not taken anything for pain control. She does not have any nausea vomiting or diarrhea. She does note some urinary urgency but no dysuria. On exam she is tender over the left paralumbar and parathoracic muscles. Pain is reproducible on movement. Her abdominal exam is benign. VSS. Review of the labs and imaging showed no evidence of infection in her urine. All laboratory studies within normal limits. Her CT abdomen pelvis is without acute findings. Patient's presentation is most consistent with a lower back strain. Patient will be discharged with prescription for Tylenol. After I had discharged the patient she requested to speak to me at bedside. She then asked for 1 more dose of morphine in her IV for the road. This was declined. <Jacob Velasco MD - Last Filed: 08/03/25 08:52> Vital Signs Vital signs: Vital Signs Temperature 36.9 C 08/03/25 00:44 Pulse Rate 88 08/03/25 00:44 Respiratory Rate 20 08/03/25 00:44 Blood Pressure 133/62 08/03/25 00:44 Pulse Oximetry 97 08/03/25 00:44 Temperature 36.9 C 08/03/25 00:44 Pulse Rate 73 08/03/25 09:00 Respiratory Rate 16 08/03/25 09:00 Blood Pressure 109/65 08/03/25 09:00 Pulse Oximetry 100 08/03/25 09:00 <Osiris Shetty APRN - Last Filed: 08/03/25 04:44> Vital Signs Temperature 36.9 C 08/03/25 00:44 Pulse Rate 88 08/03/25 00:44 Respiratory Rate 20 08/03/25 00:44 Blood Pressure 133/62 08/03/25 00:44 Pulse Oximetry 97 08/03/25 00:44 Temperature 36.9 C 08/03/25 00:44 Pulse Rate 73 08/03/25 09:00 Respiratory Rate 16 08/03/25 09:00 Blood Pressure 109/65 08/03/25 09:00 Pulse Oximetry 100 08/03/25 09:00 <Brayan Guerra MD - Last Filed: 08/03/25 19:20> Vital Signs Temperature 36.9 C 08/03/25 00:44 Pulse Rate 88 08/03/25 00:44 Respiratory Rate 20 08/03/25 00:44 Blood Pressure 133/62 08/03/25 00:44 Pulse Oximetry 97 08/03/25 00:44 Temperature 36.9 C 08/03/25 00:44 Pulse Rate 73 08/03/25 09:00 Respiratory Rate 16 08/03/25 09:00 Blood Pressure 109/65 08/03/25 09:00 Pulse Oximetry 100 08/03/25 09:00 <Jacob Velasco MD - Last Filed: 08/03/25 08:52> MDM - Abdominal Pain MDM Narrative Medical decision making narrative: Patient is a 35-year-old female who presents to the ER with left flank pain and bilateral lower abdominal pain. She reports this pain has been present for approximately 1 week. Patient reports the pain is intermittent. She endorses nausea but denies vomiting or recent fevers. Patient endorses urinary urgency. She reports she had a bowel movement this morning and it was normal for her. Patient endorses a history of sickle cell trait and urinary tract infections. Labs Ordered: CBC, CMP, UA, lipase Imaging Ordered: CT abdomen pelvis Medications Ordered: 1 L normal saline IV bolus, Zofran 4 mg IV, morphine 4 mg IV x2 0430- Care signed out to Dr. Guerra pending CT scan results. <Osiris Shetty APRN - Last Filed: 08/03/25 04:44> Differential Diagnosis Differential diagnosis: Likely abdominal pain, calculus of kidney, constipation, gastroenteritis and other (urinary tract infection) <Osiris Shetty APRN - Last Filed: 08/03/25 04:44> Lab Data Attestation: I reviewed the patient's lab results. <Osiris Shetty APRN - Last Filed: 08/03/25 04:44> Result diagrams: 08/03/25 00:51 08/03/25 00:51 <Osiris Shetty APRN - Last Filed: 08/03/25 04:44> Labs: Lab Results 08/03/25 08/03/25 Range/Units 00:51 00:57 WBC 9.3 (4.5-10.0) K/mm3 RBC 5.58 H (4.2-5.4) M/mm3 Hgb 12.2 (12.0-15.0) g/dL Hct 38.9 (37.0-47.0) % MCV 69.7 L (80-100) fl MCH 21.9 L (26-34) pg MCHC 31.4 L (32-36) g/dl RDW 14.4 (11.5-14.5) % Plt Count 262 (150-375) k/mm3 MPV 11.5 H (7.4-10.4) fl Immature Gran % (Auto) 0.9 H (0-0.5) % Neut % (Auto) 54.6 (45.5-73.1) % Lymph % (Auto) 33.8 (18.3-44.2) % [place]ickman % (Auto) 9.1 H (2.6-8.5) % Eos % (Auto) 1.2 (0-4.4) % Baso % (Auto) 0.4 (0.2-1.2) % Lymph # (Auto) 3.14 (0.9-3.2) K/mm3 [place] # (Auto) 0.9 H (0.1-0.6) K/mm3 Eos # (Auto) 0.1 (0-0.3) K/mm3 Baso # (Auto) 0.0 (0.0-0.1) K/mm3 Abs Immat Gran (auto) 0.08 H (0.00-0.031) K/mm3 Absolute Neuts (auto) 5.1 (1.3-6.7) K/mm3 Absolute Nucleated RBC 0.000 (0.0-0.012) K/mm3 Band Neutrophils % Not Reportable Nucleated RBC % 0.0 (0.0-0.2) % Platelet Estimate Adequate (Adequate) Anisocytosis 1+ Microcytosis 1+ (NORMAL) Ovalocytes 1+ Schistocytes None seen Sodium 137 (137-145) mmol/L Potassium 3.8 (3.4-5.0) mmol/L Chloride 107 (98-107) mmol/L Carbon Dioxide 20 L (22-30) mmol/L Anion Gap 10 (4-12) mmol/L BUN 14 (7-17) mg/dL Creatinine 0.84 (0.7-1.0) mg/dL Estim Creat Clear Calc 93 ml/min Estimated GFR > 60 (59 - ) Glucose 97 (65-110) mg/dL Calcium 9.5 (8.4-10.2) mg/dL Total Bilirubin 0.9 (0.2-1.3) mg/dL AST 25 (14-36) U/L ALT 15 (6-35) U/L Alkaline Phosphatase 80 (38-126) U/L Total Protein 7.8 (6.3-8.2) g/dL Albumin 4.4 (3.5-5.1) g/dL Lipase 96 (23-300) U/L Urine Color Yellow (Yellow) Urine Appearance Clear (Clear) Urine pH 5.5 (5.0-9.0) Ur Specific [place] 1.021 (1.001-1.035) Urine Protein Negative (Negative) mg/dL Urine Glucose (UA) Negative (Negative) mg/dL Urine Ketones Negative (Negative) mg/dL Ur Blood (Man) 1+ H (Negative) Urine Nitrate Negative (Negative) Urine Bilirubin Negative (Negative) Urine Urobilinogen 0.2 (<2.0) mg/dL Leukocyte Esterase Rfl Negative (Negative) FLACA/UL Urine RBC 0-2 (0-2) /hpf Urine WBC 0-5 (0-3) /hpf Ur Squamous Epith Cells Occasional (Few) /hpf Urine Bacteria Rare /hpf Urine Casts 0-2 POC Urine HCG, Qual Negative (Negative) <Osiris Shetty, SUB ACUTE CARE NURSE - Last Filed: 08/03/25 04:44> Lab Results 08/03/25 08/03/25 Range/Units 00:51 00:57 WBC 9.3 (4.5-10.0) K/mm3 RBC 5.58 H (4.2-5.4) M/mm3 Hgb 12.2 (12.0-15.0) g/dL Hct 38.9 (37.0-47.0) % MCV 69.7 L (80-100) fl MCH 21.9 L (26-34) pg MCHC 31.4 L (32-36) g/dl RDW 14.4 (11.5-14.5) % Plt Count 262 (150-375) k/mm3 MPV 11.5 H (7.4-10.4) fl Immature Gran % (Auto) 0.9 H (0-0.5) % Neut % (Auto) 54.6 (45.5-73.1) % Lymph % (Auto) 33.8 (18.3-44.2) % [place]ickman % (Auto) 9.1 H (2.6-8.5) % Eos % (Auto) 1.2 (0-4.4) % Baso % (Auto) 0.4 (0.2-1.2) % Lymph # (Auto) 3.14 (0.9-3.2) K/mm3 [place]ickman # (Auto) 0.9 H (0.1-0.6) K/mm3 Eos # (Auto) 0.1 (0-0.3) K/mm3 Baso # (Auto) 0.0 (0.0-0.1) K/mm3 Abs Immat Gran (auto) 0.08 H (0.00-0.031) K/mm3 Absolute Neuts (auto) 5.1 (1.3-6.7) K/mm3 Absolute Nucleated RBC 0.000 (0.0-0.012) K/mm3 Band Neutrophils % Not Reportable Nucleated RBC % 0.0 (0.0-0.2) % Platelet Estimate Adequate (Adequate) Anisocytosis 1+ Microcytosis 1+ (NORMAL) Ovalocytes 1+ Schistocytes None seen Sodium 137 (137-145) mmol/L Potassium 3.8 (3.4-5.0) mmol/L Chloride 107 (98-107) mmol/L Carbon Dioxide 20 L (22-30) mmol/L Anion Gap 10 (4-12) mmol/L BUN 14 (7-17) mg/dL Creatinine 0.84 (0.7-1.0) mg/dL Estim Creat Clear Calc 93 ml/min Estimated GFR > 60 (59 - ) Glucose 97 (65-110) mg/dL Calcium 9.5 (8.4-10.2) mg/dL Total Bilirubin 0.9 (0.2-1.3) mg/dL AST 25 (14-36) U/L ALT 15 (6-35) U/L Alkaline Phosphatase 80 (38-126) U/L Total Protein 7.8 (6.3-8.2) g/dL Albumin 4.4 (3.5-5.1) g/dL Lipase 96 (23-300) U/L Urine Color Yellow (Yellow) Urine Appearance Clear (Clear) Urine pH 5.5 (5.0-9.0) Ur Specific [place] 1.021 (1.001-1.035) Urine Protein Negative (Negative) mg/dL Urine Glucose (UA) Negative (Negative) mg/dL Urine Ketones Negative (Negative) mg/dL Ur Blood (Man) 1+ H (Negative) Urine Nitrate Negative (Negative) Urine Bilirubin Negative (Negative) Urine Urobilinogen 0.2 (<2.0) mg/dL Leukocyte Esterase Rfl Negative (Negative) FLACA/UL Urine RBC 0-2 (0-2) /hpf Urine WBC 0-5 (0-3) /hpf Ur Squamous Epith Cells Occasional (Few) /hpf Urine Bacteria Rare /hpf Urine Casts 0-2 POC Urine HCG, Qual Negative (Negative) <Brayan Guerra MD - Last Filed: 08/03/25 19:20> Lab Results 08/03/25 08/03/25 Range/Units 00:51 00:57 WBC 9.3 (4.5-10.0) K/mm3 RBC 5.58 H (4.2-5.4) M/mm3 Hgb 12.2 (12.0-15.0) g/dL Hct 38.9 (37.0-47.0) % MCV 69.7 L (80-100) fl MCH 21.9 L (26-34) pg MCHC 31.4 L (32-36) g/dl RDW 14.4 (11.5-14.5) % Plt Count 262 (150-375) k/mm3 MPV 11.5 H (7.4-10.4) fl Immature Gran % (Auto) 0.9 H (0-0.5) % Neut % (Auto) 54.6 (45.5-73.1) % Lymph % (Auto) 33.8 (18.3-44.2) % [place]ick[place] % (Auto) 9.1 H (2.6-8.5) % Eos % (Auto) 1.2 (0-4.4) % Baso % (Auto) 0.4 (0.2-1.2) % Lymph # (Auto) 3.14 (0.9-3.2) K/mm3 [place] # (Auto) 0.9 H (0.1-0.6) K/mm3 Eos # (Auto) 0.1 (0-0.3) K/mm3 Baso # (Auto) 0.0 (0.0-0.1) K/mm3 Abs Immat Gran (auto) 0.08 H (0.00-0.031) K/mm3 Absolute Neuts (auto) 5.1 (1.3-6.7) K/mm3 Absolute Nucleated RBC 0.000 (0.0-0.012) K/mm3 Band Neutrophils % Not Reportable Nucleated RBC % 0.0 (0.0-0.2) % Platelet Estimate Adequate (Adequate) Anisocytosis 1+ Microcytosis 1+ (NORMAL) Ovalocytes 1+ Schistocytes None seen Sodium 137 (137-145) mmol/L Potassium 3.8 (3.4-5.0) mmol/L Chloride 107 (98-107) mmol/L Carbon Dioxide 20 L (22-30) mmol/L Anion Gap 10 (4-12) mmol/L BUN 14 (7-17) mg/dL Creatinine 0.84 (0.7-1.0) mg/dL Estim Creat Clear Calc 93 ml/min Estimated GFR > 60 (59 - ) Glucose 97 (65-110) mg/dL Calcium 9.5 (8.4-10.2) mg/dL Total Bilirubin 0.9 (0.2-1.3) mg/dL AST 25 (14-36) U/L ALT 15 (6-35) U/L Alkaline Phosphatase 80 (38-126) U/L Total Protein 7.8 (6.3-8.2) g/dL Albumin 4.4 (3.5-5.1) g/dL Lipase 96 (23-300) U/L Urine Color Yellow (Yellow) Urine Appearance Clear (Clear) Urine pH 5.5 (5.0-9.0) Ur Specific [place] 1.021 (1.001-1.035) Urine Protein Negative (Negative) mg/dL Urine Glucose (UA) Negative (Negative) mg/dL Urine Ketones Negative (Negative) mg/dL Ur Blood (Man) 1+ H (Negative) Urine Nitrate Negative (Negative) Urine Bilirubin Negative (Negative) Urine Urobilinogen 0.2 (<2.0) mg/dL Leukocyte Esterase Rfl Negative (Negative) FLACA/UL Urine RBC 0-2 (0-2) /hpf Urine WBC 0-5 (0-3) /hpf Ur Squamous Epith Cells Occasional (Few) /hpf Urine Bacteria Rare /hpf Urine Casts 0-2 POC Urine HCG, Qual Negative (Negative) <Jacob Velasco MD - Last Filed: 08/03/25 08:52> Imaging Data Radiologist's impression: ITS Impressions Abdomen/Pelvis CT 08/03/25 07:47 IMPRESSION: 1. No acute abdominal abnormality. <Osiris Shetty APRN - Last Filed: 08/03/25 04:44> ITS Impressions Abdomen/Pelvis CT 08/03/25 07:47 IMPRESSION: 1. No acute abdominal abnormality. <Brayan Guerra MD - Last Filed: 08/03/25 19:20> ITS Impressions Abdomen/Pelvis CT 08/03/25 07:47 IMPRESSION: 1. No acute abdominal abnormality. <Jacob Velasco MD - Last Filed: 08/03/25 08:52> Discharge Plan Discharge Clinical Impression: Back pain <Osiris Shetty APRN - Last Filed: 08/03/25 04:44> Patient Disposition: Home <Osiris Shetty APRN - Last Filed: 08/03/25 04:44> Condition: Stable <Osiris Shetty APRN - Last Filed: 08/03/25 04:44> Instructions: Antibiotic Form <Osiris Shetty APRN - Last Filed: 08/03/25 04:44> Additional Instructions: You were seen emergency department for back pain. Please use Tylenol and lidocaine patches as needed for pain. If you develop any new symptoms such as fevers, severe abdominal pain, weakness to her legs please return to ED for re- evaluation. Otherwise please follow-up with your primary care physician. <Osiris Shetty APRN - Last Filed: 08/03/25 04:44> Patient Language: Bengali <Osiris Shetty APRN - Last Filed: 08/03/25 04:44> Prescriptions: New acetaminophen 500 mg tablet 1,000 mg PO TID PRN (Reason: saran) 7 Days Qty: 42 0RF lidocaine 5 % adhesive patch,medicated 1 patch topical DAILY Qty: 15 0RF Rx Instructions: leave on most painful area for up to 12 hrs No Action medroxyprogesterone 150 mg/mL syringe 150 mg IM [id number] <Osiris Shetty APRN - Last Filed: 08/03/25 04:44> Follow-up/Referrals: PHYSICIAN,[facility] [Non-Staff, Internal Medicine] <Osiris Shetty APRN - Last Filed: 08/03/25 04:44>
[2025-08-03] MEDS: MORPHINE SULFATE (*CRX) 4 MG/ML INJ IV PUSH (01:01)
[2025-08-03] MEDS: SODIUM CHLORIDE 0.9% IV 1,000 ML 999 ML IV CONT (01:01)
[2025-08-03 01:15] LABS: Add Urine Microscopic? YES; Appearance Urine Clear (Clear); Glucose Urine UA Negative (Negative); Leukocyte Esterase Ur Negative LEU/UL (Negative); Nitrate Urine Negative (Negative); Non Pathogenic Casts 0-2; Specific Grav Ur 1.021 (1.001-1.035)
[2025-08-03 01:20] LABS: Hematocrit 38.9 % (37.0-47.0); Hemoglobin 12.2 g/dL (12.0-15.0); Immature Granulocyte Percent A 0.9 % (0-0.5); Lymphocytes Absolute Auto 3.14 K/mm3 (0.9-3.2); Mean Corpuscular HGB Conc 31.4 g/dl (32-36); Mean Corpuscular Hemoglobin 21.9 pg (26-34); Mean Corpuscular Volume 69.7 fl (80-100); Nucleated Red Blood Cells Absolute Auto 0.000 K/mm3 (0.0-0.012); Nucleated Red Blood Cells Perc 0.0 % (0.0-0.2); Platelet Count Result 262 k/mm3 (150-375); Red Blood Count 5.58 M/mm3 (4.2-5.4); White Blood Count 9.3 K/mm3 (4.5-10.0)
[2025-08-03 01:22] LABS: Alanine Aminotransferase 15 U/L (6-35); Albumin Level 4.4 g/dL (3.5-5.1); Alkaline Phosphatase 80 U/L (38-126); Anion Gap 10 mmol/L (4-12); Aspartate Amino Transferase 25 U/L (14-36); Bilirubin,Total 0.9 mg/dL (0.2-1.3); Blood Urea Nitrogen 14 mg/dL (7-17); Calcium 9.5 mg/dL (8.4-10.2); Carbon Dioxide 20 mmol/L (22-30); Chloride 107 mmol/L (98-107); Estimated CRCL calculation 93 ml/min; Estimated Glomerular Filt Rate > 60; Glucose 97 mg/dL (65-110); Lipase 96 U/L (23-300); Potassium 3.8 mmol/L (3.4-5.0); Sodium 137 mmol/L (137-145); Total Protein 7.8 g/dL (6.3-8.2)
--- OUTSIDE RECORDS SUMMARY | 2025-08-03 01:34 | XMS_ITS | Clinical Summary ---
Author Organization [facility] Address [address] [place] [address] Care Team Providers Care Nurse Specialist Name Role Phone Unavailable Primary Care Provider Unavailabl e Source Comments [facility],non-owned Affiliates and Associated Physician Practices is amultiple site organization consisting of ambulatory clinics and hospital sitesin [place], [place], [place] and [place]. This disclosure is being madepursuant to the Care Everywhere program and may not contain all information available regarding this patient. Last updated 18.[facility] Allergies Active Allergy Reactions Criticality Noted Date Comments Sulfamethoxazole W-Trimethoprim Anaphylaxis High Medications * Be aware that medications may not be up to date on this document. Alwaysverify current medications with the patient. ibuprofen (MOTRIN) 600 MG tablet Take 600 mg by mouth q8h PRN (Pain). 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 Overview (12/08/2017): -I&D completed in ED -wound culture, unable to send for gram stain because wound already drained in ED, lacking sample -blood culture x 2 -unasyn 3g Q6h -CRP, ESR -IVF with NS -consider ID consult given hx of multiple infections in an otherwise healthy young adult Other diseases of mediastinum, not elsewhere cla ssified 06/06/2012 Overview (12/08/2017): - CT chest w/ contrast to further characterize -consider IR consult for lymph node biopsy with culture + gram stain Resolved Problems Problem Noted Date Diagnosed Date Resolved Date Urinary tract infection 06/06/201212/07 Overview (12/08/2017): UA with positive leukocyte esterase, bacteruria -urine culture -cipro 500mg q12 -consider urology consult for possible structural/anatomical abnormality as cause of recurrent UTI -pelvic exam; GC/Ch culture pending Social History Tobacco Use Types Packs/Day Years Used Date Smoking Tobacco: Never Alcohol Use Standard Drinks/Week Comments No 0 (1 standard drink = 0.6 oz pur e alcohol) Comments Unknown Sex and Gender Information Value Date Recorded Sex Assigned at Not on file 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 Gender Identity Not on file Sexual Orientation Not on file Last Filed Vital Signs Vital Sign Reading Time Taken Comments Blood Pressure 124/69 05/22/2024 9:48 PM CDT Pulse 88 05/22/2024 9:48 PM CDT Temperature 36.9 C (98.4 F) 05/22/2024 9:48 PM CDT Respiratory Rate 18 05/22/2024 9:48 PM CDT Oxygen Saturation 100% 05/22/2024 9:48 PM CDT Inhaled Oxygen Concentration - - Weight 73.9 kg (163 lb) 05/22/2024 9:48 PM CDT Height 167.6 cm (5' 6) 05/22/2024 9:48 PM CDT Body Mass Index 26.31 05/22/2024 9:48 PM CDT Plan of Treatment Health Maintenance Due Date Last Done Comments HEPATITIS C SCREENING 05/08/2010 DTAP/TDAP/TD VACCINES (1 - Tdap) 2011 HEPATITIS B VACCINE (1 of 3 - 19+ 3-dose series) 2011 Cervical Cancer Screening 2013 PAP SMEAR 2013 HPV VACCINE (1 - 3-dose SCDM series) 2019 PAP with HPV 2022 DEPRESSION SCREENING 09/08/2024 COVID-19 VACCINE ( - 2024-2 6 season) 2025 INFLUENZA VACCINE (#1) 2025 11/02/2015 ZOSTER VACCINE (1 of 2) 2042 HIV SCREENING Completed 06/03/2012 HIB VACCINE Aged Out No longer eligi ble based on patient's age to complete this topic MENINGOCOCCAL (Group B) VACC INE SHARED DECISION-MAKING Aged Out No longer eligibl e based on patient's age to complete this topic MENINGOCOCCAL GROUPS A/C/Y/W VACCINE Aged Out No longer eligible b ased on patient's age to complete this topic PNEUMOCOCCAL VACCINE Aged Out No long er eligible based on patient's age to complete this topic Procedures Procedure Name Priority Date/Time Associated Diagnosis Comments HIV-1 HIV-2 ANTIGEN/ANTIBODY STAT 06/03/2012 1:36 AM CDT from Last 3 Months or Most Recently Relevant to Health Maintenance Results * HIV-1 HIV-2 ANTIGEN/ANTIBODY (06/03/2012 1:36 AM CDT) HIV Antigen/Antib coy 1 & 2 NONREACTIVE NONREACTIVE [facility] Comment:HIV-1 p24 AG and HIV -1/HIV-2 AB NOT DETECTED. 06/03/2012 1:36 AM CDT 06/03/2012 1:57 AM CDT us Historical Provider LAB - HEMATOLOGY ORDERABL ES Final Result [address] [phone] from Last 3 Months or Most Recently Relevant to Health Maintenance
--- OUTSIDE RECORDS SUMMARY | 2025-08-03 01:34 | XMS_ITS | Clinical Summary ---
Author Organization [facility] Address [address] [place] [id number] Care Team Providers Care Weekend Receptionist Name Role Phone RamosDiana COMMUNITY ENGAGEMENT LEADER-C Primary Care Provider [phone] Social History Tobacco Use Types Packs/Day Years Used Date Smoking Tobacco: Never Assessed Comments Unknown Sex and Gender Information Value Date Recorded Sex Assigned at Not on file Legal Sex Female 7:38 PM CDT Gender Identity Not on file Sexual Orientation Not on file Plan of Treatment Health Maintenance Due Date Last Done Comments Cervical Cancer Screening Pap Smear (Age 30 to 64) Every 3 Years 1992 Annual Physical 1995 Hepatitis A Vaccines (2 of 2 - 2-dose series) 10/11/2006 04/10/2006 Hepatitis C 2010 HPV Vaccines (1 - 3-dose SCDM series) 2019 Cervical Cancer Screening Pap with HPV Testing (Age 30 to 64) Every 5 Years 2022 Cervical Cancer Screening with HPV 2022 COVID-19 Vaccine ( season) 2025 Influenza Adult (#1) 2025 11/02/2015 DTaP, Tdap and Td Vaccines (6 - Td or Tdap) 06/14/2026 06/14/2016, 01/02/2006, 07/15/1998, Additional history exists Hepatitis B Vaccines Completed 02/03/1997, 09/03/1996, 07/05/1996 Meningococcal Vaccine Aged Out 01/02/2006 No bushra popeye eligible based on patient's age to complete this topic Meningococcal B Vaccine Aged Out No l onger eligible based on patient's age to complete this topic Pneumococcal Vaccine: Pediatrics (0 to 5 Years) and At-Risk Patients (6 to 49 Years) Aged Out No longer eligible based on patient's age to complete this topic RSV Immunizations Under 20 Months Aged Out No longer eligible based on patient's age to complete this topic Insurance [employer] Care Teams Weekend Receptionist Relationship Specialty Start Date End Date Diana Beasley NP-C [address] [place] [address] PCP - General 09/06/16
[2025-08-03 01:43] LABS: Anisocytosis 1+; Microcytosis 1+ (NORMAL); Ovalocytes 1+; Schistocytes None Seen
[2025-08-03] MEDS: KETOROLAC 15 MG/ML VIAL (*BKC) IV PUSH (05:25)
== END 2025-08-03 09:02 | disposition home or self-care (01) ==
PROVIDERS: Emergency Provider Registered Nurse; PCP Emergency Medicine
DX: M54.50 Low back pain, unspecified (principal); D57.3 Sickle-cell trait; Z87.440 Personal history of urinary (tract) infections
CPT/HCPCS: 36415; 74176; 80053; 81001; 81025; 83690; 85025; 96361; 96374; 96375; 99284; J1885; J2270; J2405; J7030